=== PATIENT | male | born 1985 | race Caucasian/White ===

== ENCOUNTER 2018-04-05 09:00 | Outpatient (RCR) | payer BC, SELFPAY ==
--- NOTE | 2018-04-05 10:10 | BH.SGPN.GN ---
Behaviors/Verbalizations/Mental Status: [Client maintained good eye contact, casually dressed, motor activity appropriate, speech normal rate and tone, mood anxious, affect congruent, thoughts linear and logical, no evidence of delusions or hallucinations reported or observed.] Client Response/Progress/Benefit: [Client receptive of attending, actively provided input to discussion. Client did well to contribute to group discussion on what causes stress and the impacts of stress on mental health. Shared that stress can lead to increased anxiety and potential crisis if not managed. Provided personal example regarding his own experiences in struggling to manage stressors in his own life. Client appeared to connect with information provided regarding differences between eustress vs. distress. Expressed that stress can motivate us to take action or lead to becoming overwhelmed depending on how we respond to it. Client was able to reflect upon current personal stressors through completion of identification worksheet. Current stressors include: difficulties managing his mental health and loneliness, maintaining his physical health, finances, personal relationships, and work-related stressors. Benefitted from increasing awareness of his current stressors and the impact they may be having on ability to manage mental health symptoms. Client recommended continued IOP tx to improve stress management, increase healthy means for coping, as well as prevent decompensation.] ] Narrative Note: []
--- NOTE | 2018-04-05 10:15 | BH.SGPN.GN ---
Behaviors/Verbalizations/Mental Status: []Pt eye contact good, casually dressed, motor activity appropriate, speech normal rate and tone, mood euthymic, congruent affect, thoughts linear and intact, no evidence of delusions or hallucinations. Client Response/Progress/Benefit: []Pt engaged and active throughout session as evidenced by pt contributing thoughts and ideas to discussion and attentive to peers. Pt connected with peers? comments about flexible thinking being better than rigid thinking because with flexibility can adapt to challenges. Pt agreed with peers it's important to be resilient so can bounce back from hardships and crises. Pt engaged in small group discussion about the various strategies that can help strengthen one's resilience. Pt identified accepting change as a part of living can strengthen resilience because will reduce stress and prepare you to manage stress and change better. Pt stated if only focus on what can?t change then you won?t move forward. Pt seemed to benefit from increased awareness of what strategies can help strengthen resilience. Narrative Note: []
--- NOTE | 2018-04-05 11:15 | BH.SGPN.GN ---
Behaviors/Verbalizations/Mental Status: []Client alert and oriented, neatly dressed and groomed. Eye contact good. Motor activity appropriate. Speech within normal limits. Affect congruent to topic being discussed, mood anxious, euthymic. Thoughts linear, logical, no signs of hallucinations or delusions Client Response/Progress/Benefit: []Client responded well to session, active participant and providing positive insight. Client participated in the group activity and was positive throughout. Client helped the group review the strategies to increase personal resilience and shared trying to be positive is important. Client received a stress ball to help client remember the resilience factors. Client reported he would like to increase his resilience by increasing his hope and optimism. Client shared he has been through numerous hardships this year, so it is not easy for him to think positive at times. Client?s small step towards this goal is to focus on different perspectives when he is being negative. Client appeared to benefit from setting a goal to increase his resilience. Client?s first day in IOP. Client to continue to reduce symptom intensity and increase mood stability.
--- NOTE | 2018-04-06 09:50 | BH.SGPN.GN ---
Behaviors/Verbalizations/Mental Status: [] Pt eye contact good, casually dressed, motor activity appropriate, speech normal rate and tone, mood euthymic, congruent affect, thoughts linear and intact, no evidence of delusions or hallucinations. Reviewed client?s symptom tracker, no signs of suicidal ideation, plan, or intent as of today. Client Response/Progress/Benefit: []Client listened to others, provided positive encouragement to peers and shared thoughts and feelings. Client reported a mental health win yesterday was being able to go to work after his first day in [facility] and wasn't too stressed out while at work. client shared another mental health win is showing up to [facility] for his second day. Client reported he is proud of himself for being able to go to work and to the gym yesterday after leaving [facility]. Client identified feeling excited for what today brings him. Client to continue IOP treatment to decrease depression, learn healthy coping and prevent decompensation. Narrative Note: []
--- NOTE | 2018-04-06 10:10 | BH.SGPN.GN ---
Behaviors/Verbalizations/Mental Status: [Client alert and oriented, casual appearance. Eye contact good. Motor activity appropriate. Speech within normal limits. Affect congruent, mood euthymic and anxious. Thoughts linear, logical, no signs of hallucinations or delusions. ] Client Response/Progress/Benefit: [Client receptive to session, provided input throughout and actively listening during discussion on stress. Able to brainstorm with the group positive and negative aspects of stress on physical and mental health. Client shared connecting with discussion that even positive things can create stress in one?s life, but reports connecting with fellow participant?s examples.? Client participated in identifying current stressors impacting mental health. Client?s current stressors included; mental health, work, finances, communicating with supports, social skills and loneliness. Client reports his stress jar is currently not full but is getting close. Noted trying to use skills of reaching out to supports, exercising, and focusing on the positives to prevent from it overflowing. Appeared to benefit from gaining awareness of own current stressors and learning about the impact stress has on overall wellbeing. Progress noted in improved engagement in group and report of increased use of positive affirmations. Recommend continued IOP tx to improve consistent use of healthy coping skills and to further decrease intensity of symptoms.] Narrative Note: []
--- NOTE | 2018-04-06 11:20 | BH.SGPN.GN ---
Behaviors/Verbalizations/Mental Status: []Client alert and oriented, neatly dressed and groomed. Eye contact intense at times. Motor activity appropriate. Speech within normal limits-positive encouragement. Affect constricted, mood anxious. Thoughts linear, logical, no signs of hallucinations or delusions. Client Response/Progress/Benefit: []Client responded well to session, positive and providing ideas to peers. Client participated in the activity aimed to induce stress where client was both receptive to ideas and providing insight. Client stated, ?I didn?t think we could use that? and that group connected that sometimes ?we put restrictions on ourselves.? The group did not accomplish the goal completely, but client did not perceive it as a failure. Instead client stated, ?I think we did pretty well considering the time.? Client shared being a good listener and communicator was helpful in the activity. The group was able to make several connects to their personal lives from the activity to better deal with stress such as: using supports, adjusting expectations, and using positive self-talk. Client appeared to benefit from practicing in the moment emotional regulation skills and from gaining insight to strategies to manage stress. Client?s second day of IOP, so progress is somewhat limited. However, client appears motivated to improve his mental health. Client to continue IOP to prevent decompensation, reduce depressive symptoms, and increase mood stability.
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
--- NOTE | 2018-04-06 15:30 | BH.MDN_ITS ---
Multi-Disciplinary Note - Note 60-min Individual Time Started:: 12:20 Date: 04/06/18 Purpose of session/treatment goals addressed:: The purpose of this session was to gather information on client's current stressors, symptoms, and treatment goals. Another goal was to build rapport and set a small daily goal. Eye Contact:: Good Motor Activity:: Restless Appearance:: Neat Speech:: Tangential, Rapid Mood:: Anxious, Dysthymic Affect:: Congruent - tearful at times Thoughts:: Racing, Circular, No evidence of hallucinations/delusions noted Staff Interventions:: Therapist used active listening and open-ended questions to explore client's current stressors, symptoms, and supports. Therapist used strengths perspective to build rapport and help client identify positives and personal resilience factors. Therapist provided a nonjudgmental environment and emotional validation. Therapist provided psychoeducation on depressive maintenance cycles and grief. Therapist assisted client in identifying overall treatment goals and gave client homework to research a book he wants to read for pleasure and to fill out a thought log. Client Response:: Client responded well to session, open to meeting with therapist. Client shared the numerous stressors he has been through over the past year and stated, it just keeps getting worse. Over the past year client has experienced numerous loses, medication changes, work stress, unexpected hardships, and family issues. Client shared he continues to grieve the loss of his dog, cat, and relationship. Client reported he is tired of being so sad all the time and that he hopes [facility] will help him learn how to better manage his depression. Client shared he has tried self-help books, pushing through, and medication, but he continues to feel stuck. Client stated he feels like he is wearing a mask all the time. Client able to see how sometimes wearing the mask can be a strength as it helps client engage in opposite action or thought challenging. Client connected with the cycle of depression and shared his negative, depressive thinking keeps him stuck in the cycle of depression. Client shared he has struggled with anxiety for most of his life and that his depression and anxiety impact one another. Client shared after everything he has been through this year I'm afraid to get better as client fears that getting better means the next shoe will drop. Client reported he has anxiety about being away from his job to come to [facility] because he is afraid the building will catch on fire without client there to manage things. Client able to challenge this perspective with assistance from therapist. Client receptive to homework provided by therapist. Risks/Concerns:: Client reports having passive thoughts of but I would never act on them. Client denies active suicidal ideation, plan, and intent as of 04/06/18. Progress Toward Goals/Plan:: No progress noted yet as client just started IOP. However, client appears motivated to engage in treatment and reports his current medication has been somewhat helpful. Client receptive to homework and stated doing workbooks has been helpful in the past. Client?s identified his treatment goals to be managing depression, finding better strategies for accepting what has happened to him, and increasing trust. Client to continue IOP to prevent decompensation and promote mood stability. Time Stopped:: 13:40
--- NOTE | 2018-04-08 10:10 | BH.SGPN.GN ---
Behaviors/Verbalizations/Mental Status: []Pt eye contact good, casually dressed, motor activity appropriate, speech normal rate and tone, mood euthymic, full affect, thoughts linear and intact, no evidence of delusions or hallucinations. Client Response/Progress/Benefit: []Client listened attentively to peers and contributed thoughts and ideas to discussion. Client reported he connects with the quote because he is feeling stuck at his current job due to feeling anxious about making a potential career change. Client stated change is difficult because fear that you fail or things don't get better. Client connected with the various emotions discussed that can impact change process. Client seemed to benefit from learning about the stages of change and increased awareness of how fear of unknown has been a barrier for him to make a change. Narrative Note: []
--- NOTE | 2018-04-08 11:16 | BH.SGPN.GN ---
Behaviors/Verbalizations/Mental Status: [Client alert and oriented, casually dressed, appropriately groomed. Eye contact good. Motor activity WNL. Speech appropriate rate and tone ? at times rambling. Affect full, mood euthymic and anxious. Thoughts linear, logical, no signs of hallucinations or delusions. ] Client Response/Progress/Benefit: [Client receptive of session, active participant in both activity and discussion. Client provided input and insight throughout, at times struggling to provide other participants with the opportunity to contribute to discussion. Client worked with the group as they discussed the barriers faced in activity and identify connections with barriers to change. Provided specific connection that ?change can be unpredictable and sometimes you have to do something different and adjust the plan?. Benefited from gaining information on Decisional Balance technique in overcoming ambivalence to change. Client able to apply this strategy to identify the pros and cons regarding a mental health change he is currently considering. 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 Reflected that this change will decrease anxiety and ideally reduce frustrations with his supports since he will be able to have better boundaries as a result. Progress made in client ability to identify potential consequences of not making a healthy change on his mental health. Client to continue IOP to reduce depression, prevent decompensation, and increase positive self-talk. ] Narrative Note: []
--- NOTE | 2018-04-08 13:24 | PCM.HP.BLA ---
History and Physical Date of Admission: 04/05/18 Chief Complaint: The patient is a 32-year old male who was referred to the intensive outpatient mental health treatment program at [facility] by his PCP. He has a history of worsening depression, chronic anxiety, and personality vulnerabilities. History of Present Illness: The patient says that depression has been a problem for most of his life. His depression used to be present intermittently. It has been steady and worsening over the past year. Precipitating events have included the breakup of a relationship with his girlfriend 1 year ago. Also, his beloved cat and dog . Also, he has been stressed out by work and family problems. On his current combination of medicines, he rates his depression as a 3 out of 10. His sleep varies. Appetite is normal. His energy level is good, but his motivation level is low. He denies crying spells. Not able to enjoy much in life. He has been more irritable. Concentration varies. Does have hope for the future. Suicidal thoughts but often wishes that he would just be or not exist. The patient further says that anxiety has been a problem for most of his life. Always been a big worrier and tends to worry about many different things. He said that he had severe social anxiety before the age of 24, and then suddenly I woke up. He has had fewer social anxiety symptoms in recent years. The patient has some personality vulnerabilities. Relationships have always been difficult for him. He has abandonment fears and emotional deprivation concerns. He also feels socially inadequate. His personality vulnerabilities have contributed significantly to his symptoms of depression and anxiety. Past Psychiatric History: The patient has never been admitted to a psychiatric hospital and he denies any history of suicide attempts. He has been in counseling for the past 10 years. He was seeing a therapist 2 times a week, but is taking a break from therapy in order to work this program. He has been prescribed several medications in the past including Prozac, Zoloft and Lexapro. He believes that he is making progress on his Cymbalta combined with recently added Abilify. He denies any history of cutting behavior. Current Psychiatric Medications: Cymbalta 40 mg twice daily, Abilify 2 mg daily Medical History: Healthy allergies: No known drug allergies. Family Psychiatric History: Both parents have had depression and a brother has depression. Personal/Social History: His parents remain but are not close and are always fighting. He has never had a good relationship with his father. 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 He has 2 brothers. He has a BA degree in psychology. 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 He has never . He broke up with his girlfriend about a year ago. This devastated him. He has a difficult time when relationships fail, and he has been in many failed relationships. He has no children. There is no history of drug or alcohol problems. Review of Systems: Psychiatry: Depression and anxiety as per HPI. Not suicidal. There is no psychosis. He is cognitively intact. Constitutional: He is of average build and his weight has been steady. His energy level varies. He is eating well. Neurological: no headaches, no focal weakness. All other systems reviewed and are negative. Examination: The patient presents as a pleasant, personable male of average build who wears his hair very short. He demonstrates good social skills. Vital signs height 5 foot 10 inches, weight 178 pounds, respirations 15. Musculoskeletal: No muscle weakness or joint pain. His speech is fluent and spontaneous. His language is intact. His judgment and insight are fair. He is alert and oriented x3. His affect is cordial and appropriate. His recent and remote memory are intact. He demonstrates normal attention span and concentration. He has normal thought processes and abstract reasoning. His associations are intact. There are no hallucinations or delusions and he is not suicidal. He demonstrates normal age-appropriate fund of knowledge. Mental Status Examination: The patient is a pleasant, personable male of average build who demonstrates good social skills. Thoughts are logical and coherent. Chronic depression which is improving. He has chronic anxiety. He is not suicidal. There is no psychosis. He is cognitively intact. Summary: Patient is a 32-year old male with worsening depression over the past year, currently improving on medication. He has chronic anxiety and worry consistent with PADMINI. He has a history of social anxiety, improved. He has suffered recent stressors and losses. Has a history of personality vulnerabilities, contributing to his symptoms. Diagnoses: Arcadia I: Major depression, recurrent, in partial remission; generalized anxiety disorder; adjustment disorder with depression and anxiety; history of social anxiety, improved Arcadia II: Personality disorder unspecified Arcadia III: None Plan: I am continuing treatment with Cymbalta 40 mg twice daily. Also continuing with Abilify 2 mg daily. He will participate in the intensive outpatient groups. I will see him again as needed.
--- NOTE | 2018-04-08 13:47 | BH.DR.ITP ---
Initial Treatment Plan - Patient Information Visit Information: ADMISSION DATE: 04/05/18 EXPECTED LOS: 4-6 weeks Diagnoses:: Major depression; PADMINI; personality disorder unspecified - Problems/Symptoms Problem #1:: depression Symptom:: sadness, anhedonia, passive wishes Problem #2:: anxiety Symptom:: chronic worry, overthinking; stressed out Problem #3:: personality disorder unspecified Symptom:: chronic problems in romantic and family relationships
--- NOTE | 2018-04-11 08:17 | BH.MTP_ITS ---
[facility] - Patient Information Program Physician:: Raymon Travis Primary Therapist:: Abeba Escobar - Psychiatric Diagnoses Psychiatric Diagnoses:: Major depression, recurrent, in partial remission; PADMINI; personality disorder unspecified Diagnosis Code(s):: F33.41, F41.1 - Estimated LOS Estimated LOS (in weeks):: 6 Problem/Goal #1 - Problem/Goal #1 Stated Goal:: Client will reduce depressive symptoms, suicidal thoughts, and negative core beliefs associated with major depressive disorder. Description of Barriers: Client acknowledges that he has numerous negative core beliefs or schemas about himself that are reinforced by cognitive distortions and relationships. Client reports belief that he has stayed miserable in the past due to fear of getting better. Client is kind and willing to help people in his life, but at times takes on too many things at once and feels overwhelmed. 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 Client reported his family does not support his mental health and has poor communication. Client could benefit from increasing positive supports. Client recognizes that he has had a hard time moving past all the adverse experiences he has been through in the last year and acknowledges that he may self-sabotage at times. Functional Impact: Client is a 32-year-old male with a history of depression and anxiety who was referred to IOP by his PCP due to worsening depression for the past several months. Client described his depression at intake as really bad and having nonstop symptoms. Client's symptoms have been worsening over the past year due to numerous stressors including loss of his grandma, 2 pets, break up with girlfriend, and family issues. Client endorses depressed mood, decreased motivation, lack of renita in life, passive thoughts of , and negative core beliefs. Client also endorses ruminative anxiety and history of panic attacks. Client reports his family dynamic and work significantly impact client's mental health and mood. Client shared he has had a hard time moving on and has not felt happy in a long time. Client's symptoms impact his social, familial, and occupational functioning as well as his quality of life. Goal Relevant Strengths/Supports: Client is a kind, intelligent, and receptive individual who presents with high motivation to change his negative thinking, improve his mental health, and increase emotional healing. Client has a good base of knowledge of healthy coping skills, personal warning signs and triggers, and how he relates to others. Client can recognize patterns of behavior and thinking that have kept him stuck in the past and he is willing to change them. Client is active, resilient, and engaged in his treatment. Client has some supports and is active in volunteering and counseling. - Objectives Objective #1 Stated Objective: Client will identify and replace 2-3 negative thinking patterns that reinforce depressive symptoms, suicidal ideation, and negative self-talk. Interventions: Through groups and individual therapy, client will be provided with education on cognitive distortions, mistaken beliefs, and identifying and combating negative self-talk. Therapist will assist client in recognizing triggers for increased suicidal and depressive thought patterns. Therapist will help client explore connection between thoughts, feelings, and actions and help client reframe depressive thought patterns. Therapist will help client gain awareness of why client has developed negative thoughts and core beliefs of self and teach client how to reframe these thoughts. Discharge Criteria: Client will have accomplished this goal when client can identify and replace at least 2 negative thinking patterns with more realistic, positive statements. Target Date: 05/17/18 Review Date: 05/03/18 Status: open Objective #2 Stated Objective: Client will learn and utilize 2-3 healthy coping strategies to manage depressive symptoms as shown by reduced DSM-5 cross-cutting symptom measure score. Interventions: Through group and individual sessions, therapist will assist client in learning internal coping strategies to manage depressive symptoms, along with helping client identify triggers. Therapist will teach client about self-compassion, self-care, and personal resilience factors and how they can benefit the healing process. Discharge Criteria: Client will have achieved this goal when his DSM-5 symptoms for depression have decreased and he can verbalize and has practiced at least 2 healthy coping strategies. Target Date: 05/17/18 Review Date: 05/03/18 Status: open Problem/Goal #2 - Problem/Goal #2 Stated Goal:: Client will reduce overall frequency, intensity, and duration of anxiety to improve functioning. Description of Barriers: Client acknowledges that he has numerous negative core beliefs or schemas about himself that are reinforced by cognitive distortions and relationships. Client reports belief that he has stayed miserable in the past due to fear of getting better. Client is kind and willing to help people in his life, but at times takes on too many things at once and feels overwhelmed. 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 Client reported his family does not support his mental health and has poor communication. Client could benefit from increasing positive supports. Client recognizes that he has had a hard time moving past all the adverse experiences he has been through in the last year and acknowledges that he may self-sabotage at times. Functional Impact: Client is a 32-year-old male with a history of depression and anxiety who was referred to [facility] by his PCP due to worsening depression for the past several months. Client described his depression at intake as really bad and having nonstop symptoms. Client's symptoms have been worsening over the past year due to numerous stressors including loss of his grandma, 2 pets, break up with girlfriend, and family issues. Client endorses depressed mood, decreased motivation, lack of renita in life, passive thoughts of , and negative core beliefs. Client also endorses ruminative anxiety and history of panic attacks. Client reports his family dynamic and work significantly impact client's mental health and mood. Client shared he has had a hard time moving on and has not felt happy in a long time. Client's symptoms impact his social, familial, and occupational functioning as well as his quality of life. Goal Relevant Strengths/Supports: Client is a kind, intelligent, and receptive individual who presents with high motivation to change his negative thinking, improve his mental health, and increase emotional healing. Client has a good base of knowledge of healthy coping skills, personal warning signs and triggers, and how he relates to others. Client can recognize patterns of behavior and thinking that have kept him stuck in the past and he is willing to change them. Client is active, resilient, and engaged in his treatment. Client has some [employer] pports and is active in volunteering and counseling. - Objectives Objective #1 Stated Objective: Client will identify 2-3 anxiety triggers and 2 calming coping skills to reduce anxiety as shown by decreased DSM-5 cross cutting symptom measure scores. Interventions: Therapist will help client increase awareness of anxiety triggers and educate client on the ways anxiety impacts overall health. Therapist will teach client various calming and mindfulness strategies to promote emotional regulation and reduction of anxiety. Therapist will encourage client to implement healthy coping skills on a regular basis. Discharge Criteria: Client will have accomplished this goal when can report at least 2 triggers for anxiety and 2 calming strategies to manage symptoms. Additionally, client will have accomplished this goal when she can report reduced DSM-5 cross cutting symptoms for anxiety. Target Date: 05/17/18 Review Date: 05/03/18 Status: open Objective #2 Stated Objective: Client will identify 2-3 cognitive distortions or mistaken beliefs that lead to rumination and learn 2-3 ways to manage these thoughts to reduce anxiety. Interventions: Therapist will provide education on the most common cognitive distortions and teach client the connection between thoughts, emotions, and feelings. Therapist will assist client in identifying, challenging, and replacin g dysfunctional thoughts with positive, more realistic thoughts. Therapist will use CBT and DBT techniques to help client gain awareness of thinking errors and learn how to more effectively handle negative thoughts. Therapist will also help client increase his distress tolerance skills. Discharge Criteria: client will have accomplished this goal when can identify at least 2 cognitive distortions and at least 2 coping skills to manage negative thoughts. Target Date: 05/17/18 Review Date: 05/03/18 Status: open Problem/Goal #3 - Problem/Goal #3 Stated Goal:: Client will increase self-awareness and interpersonal effectiveness skills to improve relationships. Description of Barriers: Client acknowledges that he has numerous negative core beliefs or schemas about himself that are reinforced by cognitive distortions and relationships. Client reports belief that he has stayed miserable in the past due to fear of getting better. Client is kind and willing to help people in his life, but at times takes on too many things at once and feels overwhelmed. 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 Client reported his family does not support his mental health and has poor communication. Client could benefit from increasing positive supports. Client recognizes that he has had a hard time moving past all the adverse experiences he has been through in the last year and acknowledges that he may self-sabotage at times. Functional Impact: Client is a 32-year-old male with a history of depression and anxiety who was referred to [facility] by his PCP due to worsening depression for the past several months. Client described his depression at intake as really bad and having nonstop symptoms. Client's symptoms have been worsening over the past year due to numerous stressors including loss of his grandma, 2 pets, break up with girlfriend, and family issues. Client endorses depressed mood, decreased motivation, lack of renita in life, passive thoughts of , and negative core beliefs. Client also endorses ruminative anxiety and history of panic attacks. Client reports his family dynamic and work significantly impact client's mental health and mood. Client shared he has had a hard time moving on and has not felt happy in a long time. Client's symptoms impact his social, familial, and occupational functioning as well as his quality of life. Goal Relevant Strengths/Supports: Client is a kind, intelligent, and receptive individual who presents with high motivation to change his negative thinking, improve his mental health, and increase emotional healing. Client has a good base of knowledge of healthy coping skills, personal warning signs and triggers, and how he relates to others. Client can recognize patterns of behavior and thinking that have kept him stuck in the past and he is willing to change them. Client is active, resilient, and engaged in his treatment. Client has some supports and is active in volunteering and counseling. - Objectives Objective #1 Stated Objective: Client will learn 2-3 techniques to better manage his interpersonal relationships. Interventions: Through group and individual sessions, client will learn strategies to improve communication, resolve conflict, and increase emotional regulation to better manage interpersonal relationships. Therapist will also teach client about self-forgiveness, boundaries, and radical acceptance to help client heal from previous relationships. Discharge Criteria: Client will have accomplished this goal when he can identify and report using at least 2 techniques to better manage interpersonal relationships. Target Date: 05/17/18 Review Date: 05/03/18 Status: open
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
--- NOTE | 2018-04-11 09:12 | BH.SGPN.GN ---
Behaviors/Verbalizations/Mental Status: []Pt eye contact good, casually dressed, motor activity appropriate, speech normal rate and tone, mood euthymic, congruent affect, thoughts linear and intact, no evidence of delusions or hallucinations. Client Response/Progress/Benefit: []Pt listened attentively to others, shared thoughts and feelings and made supportive comments to peers. Pt reported one mental health positive was being social everyday the past weekend, which pt stated is something he hasn't done for months. Pt shared another mental health positive was working on a work project over the weekend and actually enjoying himself. 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 Pt shared initially he was going to avoid the discussion with his father, but chose to be honest and pt stated surprisingly his father was supportive of his decisions. Pt recognized it helped reduce his anxiety and rumination by openly communicating. Pt seemed to benefit from expressing thoughts and feelings. Pt to continue IOP level of care to maintain gains, increase healthy coping, and prevent decompensation. Narrative Note: []
--- NOTE | 2018-04-11 10:20 | BH.SGPN.GN ---
Behaviors/Verbalizations/Mental Status: []Client alert and oriented, neatly dressed and groomed. Eye contact good. Motor activity appropriate. Speech within normal limits. Affect constricted, mood euthymic. Thoughts linear, logical, no signs of hallucinations or delusions. Client Response/Progress/Benefit: []Client responded well to session, active participant. Client connected with the quote and shared a personal example of poor communication. Client shared that ineffective communication includes mind-reading, not listening, and poor body language and it can negatively impact mental health and relationships. Client shared effective communication is important because it can increase self-esteem. Client helped the group discuss the different communication styles including the payoffs and costs of each. Client shared his father is mostly aggressive and it is hard for client to work together with his father because of this. Client reported belief he uses aggressive communication and sometimes he has to at work. Client able to acknowledge the potential consequences of only using aggressive communication such as poor interpersonal relationships. Client appeared to benefit from increasing awareness of how communication impacts mental health. Progress noted as client reports application of healthy coping skills learned in individual and group sessions. Client to continue IOP to increase mood stability, improve interpersonal relationship skills, and reduce negative thinking.
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
--- NOTE | 2018-04-13 09:15 | BH.SGPN.GN ---
Behaviors/Verbalizations/Mental Status: [Eye contact is good. Motor activity is appropriate. Appearance is casual, grooming appropriate. Speech is Appropriate rate and tone. Mood is euthymic. Affect is congruent. Thoughts are linear and logical. No evidence of psychosis. Reviewed daily check in sheet and pt denies any active SI, plan, or intent as of this date.]] Client Response/Progress/Benefit: [Pt responded well to session, engaged throughout and open to processing with the group. Pt indicated current emotion as ?fairly calm? and discussed that this has been due to spending more time with supports. Identified this as a mental health win, indicating that he has been able to be a support without overstepping boundaries. Discussed that in the past, pt would have struggled with wanting the friendship to become something more, but he is now more capable of weighing the pros and cons related to crossing that boundary and decided not to pursue such. Additional win identified as consistently going to the gym, which he reports has been beneficial in improving self-confidence levels. Stressor identified as occupational stressors, but provided insight regarding the importance of ?leaving work at work? and maintaining balance. Appeared to benefit from the support and structure of group environment. Pt recommended continued IOP tx to prevent decompensation, promote ongoing application of healthy coping skills, and further reduce mental health sx.] Narrative Note: []
--- NOTE | 2018-04-13 10:20 | BH.SGPN.GN ---
Behaviors/Verbalizations/Mental Status: []Client alert and oriented, casually dressed, hygiene good. Eye contact good. Motor activity appropriate. Speech within normal limits. Affect full, mood euthymic. Thoughts linear, logical, no signs of hallucinations or delusions. Client Response/Progress/Benefit: []Client responded well to session, active participant and providing good insight to discussion. Client connected with the quote and shared ?it?s easier to hard on ourselves? rather than acknowledge progress towards goals. Client reported setting goals can benefit mental health because it can increase self-esteem, motivation, and mood. Client shared barriers such as external events, negative thinking, and self-doubt impact one?s ability to accomplish goals. Client helped the group define SMART goals and shared it is important for goals to be relevant and realistic. Client participated in the group activity and stated the group struggled at first with self-doubt, but then succeeded when everyone worked together and set realistic goals. Client appeared to benefit from learning about SMART goals and practicing setting smart goals. Progress noted in client?s report of improved mood and use of coping skills, but he can continue to reduce negative thinking and increase interpersonal effectiveness skills.
--- NOTE | 2018-04-13 11:20 | BH.SGPN.GN ---
Behaviors/Verbalizations/Mental Status: []Client alert and oriented, casually dressed, hygiene good. Eye contact good. Motor activity appropriate. Speech within normal limits. Affect full, mood euthymic. Thoughts linear, logical, no signs of hallucinations or delusions. Client Response/Progress/Benefit: []Client responded well to session, active participant. Client shared his goal is to not be verbally aggressive to his dad at work, but client had a hard time coming up with a SMART goal. After receiving help from therapist, client identified his SMART goal as taking the first 10 minutes of work to ?check in? with himself by writing his thoughts and emotions. Client shared accomplishing this goal would help client recognize the type of support or coping skill he needs before talking with his father in order to better manage his emotions. Client stated this would also reduce conflict and improve his mood. Client?s barriers included: old habits, emotions, workload, and his father. Client able to identify solutions to barriers such as: being mindful of his reactions, pause before reacting, and speaking assertively. Client appeared to benefit from identifying a SMART goal as well as identifying solutions to barriers. Progress noted as client reports slightly improved mood. However, client continues to struggle with mood instability, negative thinking, and interpersonal relationship challenges.
--- NOTE | 2018-04-13 14:24 | BH.MDN_ITS ---
Multi-Disciplinary Note - Note 30-min Individual Time Started:: 12:30 Date: 04/13/18 Purpose of session/treatment goals addressed:: The purpose of this session was address current stressors, symptoms, and boundaries. Another goal was to review different mindfulness and emotional regulation skills. Other topics included: homework and self-compassion. Eye Contact:: Good Motor Activity:: Appropriate Appearance:: Casual Speech:: Appropriate Mood:: Euthymic, Anxious Affect:: Congruent Thoughts:: Linear, Logical, No evidence of hallucinations/delusions noted Staff Interventions:: Therapist used active listening and open-ended questions to explore client's current symptoms, stressors, and barriers. Therapist used gentle challenging to help client gain awareness of his self-care balance. Therapist helped client process his cognitive dissonance using motivational interviewing strategies. Therapist used scaling questions to have client rate his mood. Therapist used strengths perspective and gave client a reading on self-compassion as a form of emotional mindfulness. Therapist encouraged client to continue homework from Wednesday?s session and gave client a worksheet to help him accomplish the goal he set in group. Client Response:: Client responded well to session, open to meeting with therapist. Client shared he has not yet completed his homework from Wednesday's session as client spend the last two evenings helping a friend. Client assured therapist that the relationship is platonic and that he felt happy helping her. Client responded well to gentle challenging about overloading himself, sharing I didn't feel like I was taking on too much. Client and therapist discussed self-care and boundaries. Client stated he benefits from homework and worksheets, especially about his schemas and patterns of behavior. Client receptive to using mindfulness strategies to help client gain insight to when his emotions and thoughts become intense and need coping intervention. Client agreed to use the worksheet provided by therapist to practice this strategy. Client stated he continues to struggle with his family and holding onto emotions from the past. Client and therapist discussed client's options moving forward and discussed the concept of self-compassion. Client was open the idea of self- compassion as emotional healing. Client stated he has seen some progress with his mental health. Client shared his depression has decreased and he rated his mood a 6 out 10 with 10 being very happy. Client shared it has been a long time since he genuinely felt happy and he wants to get back to that point. Risks/Concerns:: Client denies any suicidal ideation, plan, or intent as of 04/13/18. Progress Toward Goals/Plan:: Client is demonstrating progress towards treatment goals as shown by his report of improved mood and use of mindfulness strategies to manage his emotions. Client shared he continues to feel depressive symptoms and anxiety, mostly related to family tension and deciding what he wants to do in the future. Client to continue IOP to increase mood stability, interpersonal effectiveness skills, and emotional regulation. Client to complete homework for next session. Time Stopped:: 13:00
--- NOTE | 2018-04-15 09:10 | BH.SGPN.GN ---
Behaviors/Verbalizations/Mental Status: []Client alert and oriented, neatly dressed and groomed. Eye contact good. Motor activity appropriate. Speech tangential and off topic at times. Affect congruent, mood euthymic. Thoughts linear, logical, no signs of hallucinations or delusions. Reviewed client?s symptom tracker, no risk for suicidal ideation, plan, or intent as of 04/15/18. Client Response/Progress/Benefit: []Client responded well to session, off topic at times, but overall positive and supportive to peers. Client reports feeling ?excited? due to his mood improving and plans to have an old friend over this weekend. Client shared he and his friend had ?a little bit of a falling out,? but client reached out and is looking forward to seeing him. Client reported another mental health positive was that he got done with all of his work yesterday ?and now I?m not thinking about work at all.? Client stated he has been working on his goal of practicing mindfulness at work and it has helped client ?not butt heads? with his father. Client?s current stressor is trying to make the weekend go well for his friend. Client appeared to benefit from reflecting on his positives and connecting with peers. Progress noted as shown by client?s improved mood, but he continues to struggle with negative thinking and mood instability.
--- NOTE | 2018-04-15 10:12 | BH.SGPN.GN ---
Behaviors/Verbalizations/Mental Status: [Client alert and oriented, casually dressed and groomed. Eye contact good. Motor activity appropriate. Speech within normal limits. Affect congruent, mood anxious, euthymic. Thoughts linear, logical, no signs of hallucinations or delusions. ] Client Response/Progress/Benefit: [Client responded well to session, attentive during discussion and providing input throughout. Client connected with the group topic of crisis and did well to work with group to define crisis. Group identified examples of potential crisis to include unexpected loss, overwhelming stress, and hardships out of one?s control. Connected with examples from group on personal crisis. Attentive during discussion on how coping with crisis by using unhealthy coping skills could lead to additional personal crisis. Client shared personal crisis occurs when we don?t know how to handle our stressors. Group identified unhealthy coping skills to include; substance use, toxic relationships, overeating, avoidance, anger, and giving up. Group identified warning signs for crisis which included; isolating, increased anxiety, avoidance, agitation, minimizing, and impatience. Client completed the personal warning signs worksheet and identified crisis warning signs to include; negative thinking, feeling out of control, and increased anxiety. Benefited from group by increasing awareness of crisis and personal warning signs. Progress noted as client displaying increased levels of engagement and report of more consistent application of skills learned, report of decreased depression. Recommended continued tx to improve skill application and reduce sx severity.] Narrative Note: []
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
--- NOTE | 2018-04-18 09:08 | BH.SGPN.GN ---
Behaviors/Verbalizations/Mental Status: [Eye contact good. Motor activity WNL. Appearance casual and neat. Speech Appropriate tone, appearing to be rambling at times. Mood anxious, dysthymic. Affect is congruent. Thoughts linear and logical. No evidence of delusions or hallucinations. Reviewed daily check in sheet and no reports of suicidal ideations or intent] Client Response/Progress/Benefit: [Client receptive of session, attentive as others discussed and providing input throughout. Client indicated current mood as ?exhausted, but happy to be here? and shared not feeling physically well today. Client identified current mental health wins as setting a boundary with a friend, despite it being difficult and the friend not initially responding well to the boundary. He went on to share that this was a new experience as he would not normally ?stand my ground?. Client went on to indicate another win as ?being here? despite not feeling well. Client receptive of discussion regarding impact of physical health on emotional health and did well to be challenged regarding whether he was pushing himself and risking further impacting his physical health by not taking time to rest today. Client noted plans to ?take it slow? and expressed that he would go home and rest if needed but felt like he needed to be at group today. Client benefitted from support of the group and reflecting upon internal boundaries as well as setting boundaries with others. Progress noted in Client ability to be challenged in this area. Client recommended continued IOP tx to improve self-awareness and anxiety management, prevent decompensation, and continue to promote change behaviors. ] Narrative Note: []
--- NOTE | 2018-04-18 10:15 | BH.SGPN.GN ---
Behaviors/Verbalizations/Mental Status: []Pt eye contact good, casually dressed, motor activity appropriate, speech normal rate and tone, mood euthymic, congruent affect, thoughts linear and intact, no evidence of delusions or hallucinations. Client Response/Progress/Benefit: []Pt listened attentively to peers and contributed thoughts and ideas throughout session. 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 Pt identified things he wants to take back control over to include: being sad/unhappy, lonely, negative thinking, poor communication, fear of getting better, not accepted by family, hopelessness, and pushing people away. Pt identified fear of getting better to be the biggest barrier that has the most control over his progress. Pt seemed to benefit from increased awareness of what he believes has too much power in his life. Narrative Note: []
--- NOTE | 2018-04-18 11:16 | BH.SGPN.GN ---
Behaviors/Verbalizations/Mental Status: []Client alert and oriented, casually dressed and groomed. Eye contact good. Motor activity appropriate. Speech within normal limits. Affect congruent, mood euthymic. Thoughts linear, logical, no signs of hallucinations or delusions. Client Response/Progress/Benefit: []Client responded well to session, active participant. Client connected with the zones of action and shared comfort zone ?is comfortable, but you don?t change there.? Client discussed the barriers that could prevent his from accomplishing him goal such as negative thinking and forgetting. Client began creating a 30-day action plan to reduce his fear of getting better. Client?s motivator for reducing this is increasing self-esteem and to feel confident about his mental health progress. Client?s goal for the first week is to say a compliment to himself in the mirror every morning. For the second week client is going to continue his first goal and practice smiling in the mirror as he says positive affirmations. Client shared he can practice this at home and at work. Client stated taking time to reflect and have a consistent routine will keep client motivated. Client appeared to benefit from creating small SMART goals to reduce fear of getting better. Progress noted as client reports improved mood, but he can continue to benefit from maintenance and challenging distortions.
--- NOTE | 2018-04-20 09:03 | BH.SGPN.GN ---
Behaviors/Verbalizations/Mental Status: []Client alert and oriented, neatly dressed and groomed. Eye contact good. Motor activity appropriate. Speech within normal limits. Affect constricted, mood euthymic. Thoughts linear, logical, no signs of hallucinations or delusions. Reviewed client?s symptom tracker, no risk for suicidal ideation, plan, or intent as of 04/20/18. Client Response/Progress/Benefit: []Client responded well to session, less vocal than normal due to sickness, but still encouraging peers. Client reports feeling ?happy to be here? today as he has been sick and almost cancelled this morning. Client receptive to gentle challenging about it being acceptable to take time off to take care of one?s health. Client shared he has been doing less physical labor at work to ?set boundaries with myself? and speed up his sickness recovery. Client?s current mental health positives include making it to group today and removing the stressor of getting his phone plan changed. Client shared right now he cannot identify many stressors other than the cold client is fighting. Client acknowledges that physical health impacts mental health and it could benefit client to continue having awareness of warning signs and triggers. Client appeared to benefit from connecting with others. Progress noted as client reports more consistent mood stability, but he has reported minimizing in the past. Client to continue IOP to prevent decompensation, increase emotional regulation, and promote maintenance.
--- NOTE | 2018-04-20 10:27 | BH.SGPN.GN ---
Behaviors/Verbalizations/Mental Status: [Client eye contact good, grooming and attire casual and well kempt, motor activity appropriate, speech normal rate and tone less input than usual baseline, mood dysthymic, congruent affect, thoughts linear and intact, no evidence of delusions or hallucinations] Client Response/Progress/Benefit: [Client receptive of session and did well to remain attentive to discussion and taking notes throughout. Client noted feeling ill and therefore provided limited verbal input but actively listening throughout. He reflected upon the quote and indicated that he agrees with the idea that we have the power to choose what direction we take next. Indicated that he connected with fellow participants who shared beliefs that although we may not choose what happens to us, we have the power to decide how we choose to react to the situation. Client appeared to benefit from group discussion regarding what barriers impact ability to ?choose a different path? and make healthier choices. Client reflected that fear can prevent making changes in our life. Connected with the ?Chapters of My Life? poem and worked with the group to analyze how various chapters described related to accepting personal role in making positive mental health changes. Recommended continued tx to promote change behaviors, reduce anxiety, and prevent decompensating.] Narrative Note: []
--- NOTE | 2018-04-20 11:25 | BH.SGPN.GN ---
Behaviors/Verbalizations/Mental Status: [] Eye contact is good. Motor activity is appropriate. Appearance is neat. Speech is Appropriate. Mood is anxious. Affect is congruent. Thoughts are linear and logical. No evidence of psychosis. Client Response/Progress/Benefit: [] Pt was an active participant in group discussion and activity. Worked within his small group to complete WDEP worksheet. Identified his want or goal as to stop feeling depressed and to feel happy and not expect bad things to happen Evaluated his progress towards want stating he is currently pushing people away, feeling hopeless, and being negative which is not moving him towards his want or goal. Developed plan which he believes will help move him towards his want or goals which includes increasing awareness though journaling. Benefited from group as he was able to identify behaviors which are keeping him stuck and plan to move forward. Will continue in IOP to prevent decompensation, decrease depressive symptoms, and increase functioning. Narrative Note: []
[2018-05-20 15:59] VITALS: BP 122/89; PULSE 76; RESP 14
== END 2018-04-21 23:59 | disposition home or self-care (01) ==
LOC: BHIOP 09:00
PROVIDERS: Family Provider Family Medicine; PCP Family Medicine; Referring Provider Psychiatry & Neurology Psychiatry; Visit Provider Psychiatry & Neurology Psychiatry
DX: F33.41 Major depressive disorder, recurrent, in partial remission (principal); F40.10 Social phobia, unspecified; F41.1 Generalized anxiety disorder; F43.23 Adjustment disorder with mixed anxiety and depressed mood; R45.851 Suicidal ideations; Z81.8 Family history of other mental and behavioral disorders; F60.9 Personality disorder, unspecified; Z79.899 Other long term (current) drug therapy
CPT/HCPCS: H0035; 90832; 90834; 90837; 90853

== ENCOUNTER 2018-04-25 09:00 | Outpatient (RCR) | payer BC, SELFPAY ==
--- NOTE | 2018-04-24 09:11 | BH.COMM ---
Communication Note - Communication with Client Communication Note: Client cancelled his scheduled individual and group IOP sessions today due to illness. Client reports plan to return on Wednesday04/25/18.
--- NOTE | 2018-04-25 09:03 | BH.SGPN.GN ---
Behaviors/Verbalizations/Mental Status: []Client alert and oriented, casually dressed. Eye contact good. Motor activity appropriate. Speech within normal limits. Affect full, mood euthymic. Thoughts linear, logical, no signs of hallucinations or delusions. Reviewed client?s symptom tracker, no risk for suicidal ideation, plan, or intent as of 04/25/18. Client Response/Progress/Benefit: []Client responded well to session, active participant. Client reports feeling tired but hopeful today. Client's current mental health wins include not being sick anymore I can speak again and meeting a new friend and client went out to lunch with them. Client also shared he has been practicing challenging his negative thinking also. Client shared I'm always thinking when's the next bad thing going to happen. However, now he catches himself and tries to challenge these thoughts. Client's current stressor is struggle with sleep. Client reported over the past couple of weeks he has been having a hard time staying asleep. Client appeared to benefit from reflecting on his progress in challenging cognitive distortions. Progress noted as client reports improved mood, but he can continue to benefit from IOP to increase self-awareness and emotional regulation.
--- NOTE | 2018-04-25 12:01 | BH.MDN_ITS ---
Multi-Disciplinary Note - Note 60-min Individual Time Started:: 10:30 Date: 04/25/18 Purpose of session/treatment goals addressed:: The purpose of this session was to identify strategies to improve boundaries and interpersonal effectiveness skills. Another goal was to review homework, challenge negative thinking, and increase emotional regulation. Eye Contact:: Good Motor Activity:: Appropriate Appearance:: Casual Speech:: Rambling Mood:: Euthymic Affect:: Congruent Thoughts:: Linear, Logical, No evidence of hallucinations/delusions noted Staff Interventions:: Therapist used active listening and open-ended questions to explore client's stressors, positives, and symptoms from the weekend. Therapist processed client's homework and gently challenged client on potential self-fulfilling prophecies. Therapist and client discussed the benefit of nilson listic expectations and healthy boundaries regarding relationships and supports. Therapist used strengths perspective to empower client on progress and use of mindfulness strategies. Therapist gave client homework on combating core beliefs. Client Response:: Client responded well to session, open to meeting with therapist and reviewing homework. Client stated he had a good experience with the homework from last week as client reported belief he was able to reduce his schema-driven urges and instead act in a more mindful way around his father. Client shared he had a positive weekend as client spent time with his friends and met someone new for lunch on Wednesday. Client stated he uses a website to meet people and he met up with a girl for lunch as friends. Client reported it was nice to spend time with someone and that this woman wants to meet again. Client acknowledges that he has struggled with relationships in the past but stated I felt like it was important for my healing to get myself back out there. Client challenged his negative thinking of when's the next bad thing going to happen by reminding himself that he is not a mind-reader and I shouldn't right her off. Client reported the woman he went to lunch with has a boyfriend and client shared I'm not going to enter homewrecker territory. Client receptive to gentle challenging from therapist on self-sabotage and boundary setting. Client acknowledges that he needs to continue to work on himself before entering any kind of new relationship. Client able to see the benefits of setting realistic expectations, communicating needs, and setting healthy boundaries. Client stated his mood has been more consistently positive and that it is real me not mask me. Client receptive to homework of beginning to recognize and challenge negative core beliefs. Risks/Concerns:: Client denies any suicidal ideation, plan, and intent as of 04/25/18. Progress Toward Goals/Plan:: Client is demonstrating progress towards treatment goals as shown by his report of improved mood, increased emotional regulation, and increased socialization. Client reported he has been using mindfulness and has been more focused on ?doing what?s best for me? when talking with supports. Client has ongoing depressive and anxious symptoms, but they are of reduced intensity. Client continues to struggle with boundaries and establishing expectations at times, especially when entering new relationships. Client to continue IOP to increase mood stability, interpersonal effectiveness skills, and emotional regulation. Client to complete homework for next session. Time Stopped:: 11:25
--- NOTE | 2018-04-27 10:22 | BH.SGPN.GN ---
Behaviors/Verbalizations/Mental Status: []Client alert and oriented, casually dressed, good hygiene. Eye contact good. Motor activity appropriate. Speech within normal limits-less vocal than normal. Affect congruent, mood euthymic, anxious. Thoughts linear, logical, no signs of hallucinations or delusions. Client Response/Progress/Benefit: []Client responded somewhat well to session, quiet and taking notes, but providing occasional input. Client connected with the concept of pitfalls and identified pitfalls as things that ?get us stuck.? Client agreed with peers that lack of awareness, comfort, and self-sabotage can increase the likelihood of someone falling into a pitfall. Client identified negative thinking and fear as examples of pitfalls. Client shared if a person has good self-awareness it is possible to avoid falling into pitfalls. Client participated in the group activity and provided verbal direction. Client stated it was hard to navigate past pitfalls when the group was unaware of the barriers in front of them and lacked direction. Client appeared to benefit from increasing awareness of how pitfalls impact mental health and how to manage pitfalls. Progress noted as client reports more consistent mood stability, but he continues to struggle with low self-esteem and self-care that reinforce depression and anxiety.
--- NOTE | 2018-04-27 11:20 | BH.SGPN.GN ---
Behaviors/Verbalizations/Mental Status: [] Eye contact is good. Motor activity is appropriate. Appearance is casual. Speech is Appropriate. Mood is anxious. Affect is congruent. Thoughts are linear and logical. No evidence of psychosis Client Response/Progress/Benefit: [] Pt was an active participant in group discussion and activity. Pt completed a worksheet where he identified his own personal pitfalls. Along with the group he also identified general pitfalls or obstacles that keep them stuck in Thier life. Obstacles included; being unorganized, lack of a plan, not communicating, fear of failure, not utilizing supports, and letting emotions get in the way of progress. Group worked together to identify strategies to overcome personal and general pitfalls which included; actively participating in mental health treatment, developing and committing to a plan, identifying decision-making and problem solving strategies, reflection on past experiences, identifying coping skills that are effective and not effective, reframing, and challenging negative thoughts. Benefited from identifying personal and general pitfalls and strategies to over these pitfalls. Will continue in IOP to increase coping skills, improve daily functioning, and prevent decompensation. Narrative Note: []
--- NOTE | 2018-04-28 09:05 | BH.SGPN.GN ---
Behaviors/Verbalizations/Mental Status: []Client alert and oriented, neatly dressed and groomed. Eye contact good. Motor activity appropriate. Speech within normal limits. Affect congruent, mood euthymic. Thoughts linear, logical, no signs of hallucinations or delusions. Reviewed client?s symptom tracker, no risk for suicidal ideation, plan, or intent as of 04/28/18. Client Response/Progress/Benefit: []Client responded well to session, active participant. Client reports feeling ?excited? today as his mood has been improving. Client reported his current mental health positives are that he is interested in listening to music to music again and he set a boundary with a friend. Client shared ?I?m all for helping people, but I felt like she was taking advantage of my generosity.? Client stated he felt anxious about setting the boundary because he did not want to hurt her feelings. However, client shared he decided to set the boundary because ?I don?t like mixing work with friends.? Client reports feeling proud about the boundary, but he shared he will have to continue to reinforce it. Client appeared to benefit from reflecting on progress with boundary setting, but he can continue to reinforce healthy coping skills to prevent setbacks.
--- NOTE | 2018-04-28 10:17 | BH.SGPN.GN ---
Behaviors/Verbalizations/Mental Status: [Client alert and oriented, casually dressed, hygiene appropriate. Eye contact good. Motor activity WNL. Speech appropriate rate/tone. Affect congruent, mood euthymic. Thoughts linear, logical, no signs of hallucinations or delusions. ] Client Response/Progress/Benefit: [Pt responded well to session, able to connect with group topic and provide ideas throughout. Pt appeared to connect with the quote, providing insight that ?it?s important to move on from anything? and went on to discuss negative impact of ruminating on the past. Pt participated in group discussion regarding mental health benefits of change. Pt identified three small personal changes to improve mental health as : fight less with his father at work, begin going to bed before 12am, and reach out to more healthy male supports. Identified current barriers keeping pt from making those changes to be: bad habits, distractions, lack of initiative, and personalizing the opinion of others. Pt appeared to benefit from gaining awareness of personal changes that would improve mental health and the barriers keeping client stuck. Progress noted in client level of insight regarding current barriers impacting mental health change and how these are keeping him stuck. Continue IOP to further increase healthy coping skills and promote healthy boundaries and change behaviors] Narrative Note: []
--- NOTE | 2018-05-03 09:02 | BH.SGPN.GN ---
Behaviors/Verbalizations/Mental Status: []Client alert and oriented, neatly dressed and groomed. Eye contact good. Motor activity appropriate. Speech within normal limits. Affect congruent, mood euthymic. Thoughts linear, logical, no signs of hallucinations or delusions. Reviewed client?s symptom tracker, no risk for suicidal ideation, plan, or intent as of 05/03/18. Client Response/Progress/Benefit: []Client responded well to session, providing supportive statements to peers. Client reports feeling ?tired but happy to be here? today. Client discussed and processed his current mental health wins and stressors. Client?s current stressor is difficulty sleeping. Client shared he has not been able to stay asleep throughout the night and he is worried he will ?dose off? behind the wheel when he is driving. Client spoke with his nurse practitioner about it and she suggested a sleep study. Client plans to follow up with scheduling. Client?s mental health wins include spending time being social this weekend and setting boundaries. Client reported ?I was social three days this weekend? and shared it felt good to be around friends that do not take advantage of client. Client set a boundary with a friend who has been asking client for a lot of favors recently. Client shared ?I felt like she was taking advantage of my generosity? and that although his friend did not like the boundary, client felt good about it for his mental health. Client appeared to benefit from reflecting on progress. Client continues to endorse more stable moods and is applying coping skills. Client to continue IOP to further promote gains and continue working on challenging cognitive distortions.
--- NOTE | 2018-05-03 11:16 | BH.SGPN.GN ---
Behaviors/Verbalizations/Mental Status: []Client alert and oriented, casual dress, hygiene tended to. Eye contact good. Motor activity appropriate. Speech within normal limits. Affect congruent, mood euthymic and positive. Thoughts linear, logical, no signs of hallucinations or delusions. Client Response/Progress/Benefit: []Pt engaged throughout session AEB pt participating in activity, contributing thoughts, and providing support and encouragement to peers. Client worked collaboratively with peers during activity in which group members had to identify positive strategies to overcome the various barriers/obstacles that hindered progress. Client identified personal barriers as: relationship with others, fear of change, and not giving myself enough credit. Client shared a strategy for overcoming barrier of low motivation as establishing and maintaining a healthy routine. Reports he finds routine to decrease anxiety as well. Client shared the barrier he is going to work on is giving himself more credit for accomplishment by communicating his accomplishments with others. Client seemed to benefit from increased repertoire of strategies to help overcome barriers to progress. Recommended continued IOP to maintain gains, prevent decompensation, and continue to improve sx management and healthy boundary setting. Narrative Note: []
--- NOTE | 2018-05-05 09:10 | BH.SGPN.GN ---
Behaviors/Verbalizations/Mental Status: [] Eye contact is good. Motor activity is appropriate. Appearance is casual. Speech is Appropriate. Mood is euthymic. Affect is full. Thoughts are linear and logical. No evidence of psychosis. Reviewed daily check in sheet and no reports of suicidal ideations or intent. Client Response/Progress/Benefit: [] Pt participated in group discussion. Emotion for today is happy. Shared with the group that he experienced a trigger today while at work. Reports that he experienced this trigger 2 months ago and it completely overwhelmed him and led depressive symptoms and panic. Was proud to report that he managed this trigger yesterday effectively. Reports that he did not break down and was able to utilize coping skills learned in groups. Admits that he did struggle at night stating that he felt lonely, bored, and depressed. Progress noted per pt report. Benefited from group discussion, feedback, and encouragement. Will continue in IOP to prevent decompensation and stabilize mood. Narrative Note: []
--- NOTE | 2018-05-05 10:25 | BH.SGPN.GN ---
Behaviors/Verbalizations/Mental Status: [Pt eye contact good, casually dressed, motor activity appropriate, speech normal rate and tone, mood euthymic, irritable, congruent affect, thoughts linear and intact, no evidence of delusions or hallucinations.] Client Response/Progress/Benefit: [Pt receptive of session and engaged throughout. Did well to participate in the activity and provide reflective input during session. Pt appeared to connect with various definitions of resilience provided by the group as well as ideas for how resilience can have positive impacts mental health and wellness. Pt agreed with peers that without resilience it is a lot harder to overcome difficulties or learn to ?bounce back?. Pt engaged in small group discussion about the various strategies that can help strengthen one's resilience. Indicated that making connections is an important component of resilience as it ?gives us positive reinforcement and perspective?. Pt seemed to benefit from increased awareness of various components that can contribute to increased resilience. Progress noted in his ability to provide insight as to how each resilience component can apply to own life. Continued IOP recommended to prevent decompensation, increase skill application, and continue to improve healthy boundary setting. ] Narrative Note: []
--- NOTE | 2018-05-05 12:33 | BH.MDN_ITS ---
Multi-Disciplinary Note - Note 60-min Individual Time Started:: 11:25 Date: 05/05/18 Purpose of session/treatment goals addressed:: The purpose of this session was to address current symptoms, stressors, and progress. Other goal was to identify activities and interests that support client's values and improve daily routine. Other topics included: maintenance and aftercare, love languages, and boundaries. Eye Contact:: Good Motor Activity:: Appropriate Appearance:: Casual Speech:: Appropriate Mood:: Dysthymic Affect:: Congruent Thoughts:: Linear, Logical, No evidence of hallucinations/delusions noted Staff Interventions:: Therapist used active listening and open-ended questions to explore client's current stressors, progress and gains, and symptoms. Therapist assisted client in challenging and reframing negative thinking. Therapist explored client's loneliness and helped client identify activities, interests, and values that can reduce loneliness. Therapist taught client about the 5 love languages and how one can use these to gain awareness of how one likes to be appreciated. Therapist used strengths perspective by showing client his reduced scores on the DSM-5 and discussed plan of care moving forward. Therapist gave client homework to identify his top 3 values and list activities that support those values. Client Response:: Client responded well to session, appearing less enthusiastic than usual. Client reported he has been feeling a little sad and lonely lately. Client shared he misses his dog and that he is also sad about things not working out with the friend he met last week. Client and therapist further processed client's emotions and challenged negative thinking patterns. Client recognized that he can feel sad from time to time and he reframed ruminations about the friend situation. Client reported he feels like his routine is becoming mundane and he is tired of doing the same thing over and over. Client able to identify interests and activities that could change things up and he recognized that he could do more things that align with his values. Client and therapist further processed client's loneliness using the 5 love languages. Client recognized that he needs words of affirmation and quality time to feel appreciated and less lonely. Client used this information to identify ways he can communicate with his supports and engage in activities to reduce feelings of loneliness. Client also acknowledged that he can improve with feeling comfortable and happy with himself, by himself. Client was open to the idea of going to a yoga class to be social and to work on being comfortable with himself. Client reported overall, he has been feeling better and, in a few weeks, he feels like he will be ready to discharge. Client reflected on his progress which includes: setting bound flaco, increasing socialization, challenging negative thoughts, and prevention of major setbacks when triggered. Client receptive to homework. Risks/Concerns:: Client denies any suicidal ideations, plan, or intent as of 05/05/18. Progress Toward Goals/Plan:: Client is demonstrating progress towards treatment goals as shown by his report of improved mood, increased emotional regulation, and increased socialization. Client reported he has been using mindfulness and challenging his negative thinking. Client shared he has been able to set boundaries and overcome challenges without major setbacks. Client has ongoing depressive and anxious symptoms, but they are of reduced intensity. Client?s DSM-5 scores at review have decreased by half which demonstrates significant progress. Although client reports he has been overall feeling better and ?like myself,? he is currently struggling with his routine being mundane and feeling lonely. Client open to homework provided by therapist to help with this and to engage in a different activity this weekend. Client continues to struggle with expectations and managing his emotions regarding interpersonal relationships. Client to continue IOP to further promote gains, increase value-driven activities, and improve self-esteem. Time Stopped:: 12:18
--- NOTE | 2018-05-05 14:51 | BH.MTP_ITS ---
Treatment Plan Review Date of Admission:: 04/05/18 Date of Treatment Plan Review:: 05/05/18 Admitting Diagnoses:: Major depression, recurrent, in partial remission F33.41; PADMINI F41.1; personality disorder unspecified Current Diagnoses:: Major depression, recurrent, in partial remission F33.41; PADMINI F41.1; personality disorder unspecified Patient's Response to Treatment:: Client has been responding well to treatment and is demonstrating significant progress. Client has consistent attendance and is active in both group and individual sessions. In group, client positively contributes to discussions, provides supportive feedback, and engages in activities. In individual sessions, client is receptive to new coping strategies, challenging cognitive distortions, and confronting patterns of behavior that have kept client feeling stuck. Client reports consistent application of mindfulness and thought challenging skills, increased socializing with friends, and engaging in activities he enjoys. Client's DSM-5 scores for depression and anxiety have both decreased by half and his overall DSM-5 score reduced from 41 at admission to 15 at review. Client continues to be open to increasing self-awareness and learning different strategies to better manage his emotions and relationships. Status of Current Problems and Symptoms: Client reports overall improvement in symptoms and has been able to get back to feeling like myself. However, client does continue to struggle with expectations in interpersonal relationships and feeling lonely. Client acknowledges some self-sabotaging behaviors such as recently meeting with a woman client met online, who was engaged, with the hopes of becoming friends. Client reported it did not work out well as her fiance laid the hammer down. Client shared he also feels like his daily routine is becoming mundane and repetitive. Client would like to find more things in life that bring him renita, reduce loneliness, and feel more comfortable with himself and others in relationships. Problem #1 Problem Name:: Pt. will reduce depressive symptoms, SI, and negative core beliefs Status of Goals:: Objective 1- accomplished- Client can identify negative thinking patterns that reinforce negative core beliefs and replace them. Client reported he has been writing down three positives a day and keeping a gratitude journal. Client wants to continue working on this goal as he recognizes he has schemas related to abandonment which at times reinforces depression. Objective 2- accomplished. Client?s DSM-5 scores for depression have reduced by half going from 4/8 at admission to 2/8 at review. Client also denies any suicidal thoughts. Additionally, client has been consistently applying healthy coping skills such as going to the gym, spending time with friends, and volunteering. Team Recommendations:: Client encouraged to continue working on this treatment goal to reinforce healthy coping skills and continue to combat negative core beliefs. Client and therapist currently working on managing loneliness and improving client's daily routine. Client encouraged to follow up with his outpatient providers for continuity of care. Problem #2 Problem Name:: Pt. will reduce overall frequency, intensity, and duration of anxiety Status of Goals:: Objective 1- accomplished. Client can identify his anxiety triggers and reports use of mindfulness strategies at work and at home to manage his anxiety. Client?s DSM-5 scores for anxiety have also reduced by half, going from 4/12 at admission to 212 at review. Objective 2-accomplished. Per client?s report he has been recognizing distortions as they happen, and he has been using self-talk to combat negative thoughts. Client stated he often tells himself ?I?m not a mind-reader? to prevent himself from feeding into cognitive distortions. Team Recommendations:: Client encouraged to continue working on this goal as he can continue to benefit from maintenance of healthy coping skills to promote gains. Client and therapist currently working on coping with work stress and ongoing cognitive restructuring. Client encouraged to follow up with his outpatient providers for continuity of care. Problem #3 Problem Name:: Pt. will increase self-awareness and interpersonal effectiveness skills Status of Goals:: Objective 1- partially accomplished. Client has learned different techniques to improve boundary setting and increase awareness of self- sabotaging behaviors. Client reports improved communication and conflict resolution with his father and coworkers. Client also recently set boundaries with his friend. Client to continue working on this goal as he has struggled with making and maintaining healthy female friendships. Team Recommendations:: Client encouraged to continuing working on this goal as he can continue to increase self-awareness and improve emotional regulation in interpersonal relationships. Client encouraged to follow up with outpatient providers for continuity of care.
--- NOTE | 2018-05-06 09:10 | BH.SGPN.GN ---
Behaviors/Verbalizations/Mental Status: [] Eye contact is good. Motor activity is appropriate. Appearance is casual. Speech is Appropriate. Mood is depressed. Affect is flat. Thoughts are linear and logical. No evidence of psychosis. Reviewed daily check in sheet and no reports of suicidal ideations or intent. Client Response/Progress/Benefit: [] Pt was an active participant in group discussion. Emotion for today is blah. Reports that he woke up this AM with a headache which has impacted his overall energy and mood. Insight into ability to change his mood and thoughts and not being a victim to his physical issues. Reports that he reached out to a friend last evening and went out to eat. States that this was helpful to decrease depression and feelings of loneliness. Looking forward to the weekend with plan to remain social and active. Pt provided appropriate feedback to peer who was struggling with anxiety. Progress noted per pt report. Will continue in IOP to prevent decompensation, stabilize mood, and increase coping skills. Narrative Note: []
--- NOTE | 2018-05-06 10:18 | BH.SGPN.GN ---
Behaviors/Verbalizations/Mental Status: []Client alert and oriented, neatly dressed and groomed. Eye contact good. Motor activity appropriate. Speech within normal limits. Affect congruent, mood euthymic. Thoughts linear, logical, no signs of hallucinations or delusions. Client Response/Progress/Benefit: []Client responded well to session, positive contributions to discussion. Client connected to the quote sharing ?the different forces cause growth.? Client contributed to the discussion of how life is made of up different positive and negative forces and how those forces impact one?s mental health. Client stated examples of positive forces include therapy, healthy coping skills, and self-care. Client identified examples of negative forces to be negative habits and negative thinking. Client participated in the activity and was able to manage his emotions and use assertive communication. At times the group struggled to keep the balance between positive and negative forces, but with adjustments and patience they were successful. Client appeared to benefit from practicing in the moment coping skills and gaining awareness. Progress noted as client has reported improved mood, but he can continue to increase use of healthy coping skills.
--- NOTE | 2018-05-06 13:46 | PCM.PN.BLA ---
Progress Note Chief Complaint: The patient is a 32-year old male who is an active participant in the intensive outpatient mental health treatment program at [facility]. He has a history of depression, anxiety, and personality vulnerabilities. History of Present Illness/Interim History: The patient states that generally he is doing well. He said that about 2 or 3 weeks ago he started to feel a lot better. His mood improved and his anxiety level decreased. He feels better in general. He thinks that the intensive outpatient groups have been very helpful. He is learning coping skills. 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 He was able to keep a clear head even though he still had feelings for her. He complains today of excessive sleepiness during the day. He states that on numerous occasions when he is driving he starts to drift off to sleep and this has caused him concerned about his safety. He told his PCP about this and was referred for a sleep study. However, he would like to be able to resolve the problem earlier if possible. I said we could try modafinil. Current Psychiatric Medications: Cymbalta 40 mg twice daily, Abilify 2 mg daily Review of Symptoms: Psychiatry: His mood has improved and his anxiety level is more manageable. He is not suicidal. There is no psychosis. He is cognitively intact. Constitutional: He is of average weight and his weight has been steady. His energy level is poor. He complains of excessive sleepiness. Mental Status Examination: The patient presents as a pleasant, personable male of average build who demonstrates good social skills. His thoughts are logical and coherent. His mood has improved. He is not suicidal. There is no psychosis. He is cognitively intact. Diagnoses: [place] I: Major depression, recurrent, in remission; generalized anxiety disorder; excessive daytime sleepiness [place] II: Personality disorder and specified [place] III: Healthy Plan: I am continuing treatment with Cymbalta and Abilify at the current doses. I am adding modafinil 100 mg every morning. The patient will continue participation in the intensive outpatient groups. I will see him again as needed.
--- NOTE | 2018-05-06 13:53 | PN_ITS ---
Progress Note Chief Complaint: The patient is a 32-year old male who is an active participant in the intensive outpatient mental health treatment program at [facility]. He has a history of depression, anxiety, and personality vulnerabilities. History of Present Illness/Interim History: The patient states that generally he is doing well. He said that about 2 or 3 weeks ago he started to feel a lot better. His mood improved and his anxiety level decreased. He feels better in general. He thinks that the intensive outpatient groups have been very helpful. He is learning coping skills. 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 He was able to keep a clear head even though he still had feelings for her. He complains today of excessive sleepiness during the day. He states that on numerous occasions when he is driving he starts to drift off to sleep and this has caused him concerned about his safety. He told his PCP about this and was referred for a sleep study. However, he would like to be able to resolve the problem earlier if possible. I said we could try modafinil. Current Psychiatric Medications: Cymbalta 40 mg twice daily, Abilify 2 mg daily Review of Symptoms: Psychiatry: His mood has improved and his anxiety level is more manageable. He is not suicidal. There is no psychosis. He is cognitively intact. Constitutional: He is of average weight and his weight has been steady. His energy level is poor. He complains of excessive sleepiness. Mental Status Examination: The patient presents as a pleasant, personable male of average build who demonstrates good social skills. His thoughts are logical and coherent. His mood has improved. He is not suicidal. There is no psychosis. He is cognitively intact. Diagnoses: [place] I: Major depression, recurrent, in remission; generalized anxiety disorder; excessive daytime sleepiness [place] II: Personality disorder and specified [place] III: Healthy Plan: I am continuing treatment with Cymbalta and Abilify at the current doses. I am adding modafinil 100 mg every morning. The patient will continue participation in the intensive outpatient groups. I will see him again as needed.
--- NOTE | 2018-05-10 09:05 | BH.SGPN.GN ---
Behaviors/Verbalizations/Mental Status: []Client alert and oriented, neatly dressed and groomed. Eye contact good. Motor activity appropriate. Speech within normal limits. Affect congruent, mood euthymic. Thoughts linear, logical, no signs of hallucinations or delusions. Reviewed client?s symptom tracker, no risk for suicidal ideation, plan, or intent as of 05/10/18. Client Response/Progress/Benefit: []Client responded well to session, active and providing words of encouragement. Client reports feeling ?hopeful? today. Client identified his current mental health ?wins? to be starting a narcolepsy medication to help with his daytime drowsiness and planning a vacation to [place]. Client shared he is going with his mother and aunt, but he reported that ?I told them I needed me time too.? Client reported belief he is communicating his needs with family and setting boundaries. Client?s current stressor is ?every time I come back from a trip I feel overwhelmed.? The group helped client challenge his perspective and he recognized that he is using some distorted thinking. Client shared he wants to try to focus on one thing at a time rather than look ahead at the unknown. Client appeared to benefit from reflecting on his positives and challenging negative thoughts. Progress noted as client more consistently reports improved mood, but he can continue to increase healthy boundaries to prevent setbacks.
--- NOTE | 2018-05-10 10:15 | BH.SGPN.GN ---
Behaviors/Verbalizations/Mental Status: [] Eye contact is good. Motor activity is appropriate. Appearance is casual. Speech is Appropriate. Mood is anxious. Affect is congruent. Thoughts are linear and logical. No evidence of psychosis Client Response/Progress/Benefit: [] Pt was an active participant in group discussion and activity. Along with group members pt worked on defining problem. Group identified that a problem is a difficulty matter requiring a solution and something that prevents them from reaching a goal. Attentive during psycho-education on components of a problem which included goals and barriers. Group identified common barriers to problem solving which included; distorted thoughts, toxic relationships, lack of resources, and other limitations. Attentive during psycho-education on strategies for problem-solving through the ABCDE method; which is Asking what the problem is; Brainstorming solutions, Choosing a solution, Doing it, and Evaluate. Group worked through some examples of problems using the ABCDE method. Benefited from identifying barriers to problem solving and learning new strategies to problem solve effectively. Will continue in IOP to maintain gains, stabilize mood, and increase coping skills. Narrative Note: []
--- NOTE | 2018-05-10 11:15 | BH.SGPN.GN ---
Behaviors/Verbalizations/Mental Status: [Eye contact is good. Motor activity is appropriate. Appearance is casual. Speech is Appropriate. Mood is positive, euthymic. Affect is congruent with mood. Thoughts are linear and logical. No evidence of psychosis. ] Client Response/Progress/Benefit: [Pt was an active participant in group activity and discussion, provided insight and worked with group to process activity completed in previous session. Pt completed problem-solving worksheet in which pt identified current problem impacting mental health as What do I want to do about my job and developed a [id number]-[id number] plan to address this problem which he reviewed within the small group. Pt identified barriers to overcoming problem which include; family, financial pressures, fear of failing, and lack of self-confidence. Identified steps to reaching goal as: keep a list of personal strengths, brainstorm potential job possibilities, ask friends for advice, and reflect upon personal goals/values related to happiness. Benefited from group as she was able to create a personalized plan which identified barriers and steps to work on a mental health problem. Will continue in IOP to maintain gains and prevent decompensation while continuing to improve mental health sx management and increase confidence levels.] Narrative Note: []
--- NOTE | 2018-05-11 07:53 | BH.MDN_ITS ---
Multi-Disciplinary Note - Note 45-min Individual Time Started:: 12:10 Date: 05/10/18 Purpose of session/treatment goals addressed:: The purpose of this session was to review homework, discuss self-care balance, and continue to work on cognitive restructuring. Other topics included: discharge, personal values, and medication changes. Eye Contact:: Good Motor Activity:: Appropriate Appearance:: Neat Speech:: Appropriate Mood:: Euthymic Affect:: Congruent Thoughts:: Linear, Logical, No evidence of hallucinations/delusions noted Staff Interventions:: Therapist used active listening and open-ended questions to explore client?s experience with medication changes and homework. Therapist discussed the benefits of ongoing self-awareness and self-care balance to promote gains client has made in IOP. Therapist helped client explore his personal values and identify activities and opportunities that will reflect those values. Therapist gently challenged client on use of cognitive distortions and boundaries with family. Therapist used strengths perspective to reflect on client progress and discussed upcoming discharge. Client Response:: Client responded well to session, open to meeting with therapist. Client stated his drowsiness has reduced with the help of recent medication change. Client reported his mood continues to be consistently improved. Client shared after I got over my fear of getting better I actually got a lot better. Client shared he completed the homework from last session and made small changes to his daily routine to reduce mundaneness. Client recognized that to promote progress moving forward, he wants to try to engage in more opportunities and activities that reflect his personal values. 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 Client stated he is starting to feel like I can make big decisions again. Client acknowledges that he will need to continue to find balance in self-care and maintain boundaries. Client reported he is going to [place] with his mother and aunt to drive them around. However, client stated he set a boundary and told his mother that client will need me-time on the beach. Client receptive to continuing to practice healthy coping skills and maintaining self-care routine. Risks/Concerns:: Client denies any suicidal ideations, plan, or intent as of 05/10/18. Progress Toward Goals/Plan:: Client is demonstrating progress towards treatment goals as shown by his report of improved mood, increased emotional regulation, and thought challenging. Client continues to feel stable in his mood and able to overcome stressors. Client stated his drowsiness during the day has reduced with the help of recent medication change. Client also shared he has ?moved past? the loneliness he felt last week, and he has made changes to switch up his daily routine. Client is showing improvement with boundary setting, but he continues to struggle with saying no to people, which could create issues in the future. Client to continue IOP to further promote gains made in IOP and reinforce healthy coping skills. Time Stopped:: 12:55
--- NOTE | 2018-05-11 09:10 | BH.SGPN.GN ---
Behaviors/Verbalizations/Mental Status: [] Eye contact is good. Motor activity is appropriate. Appearance is casual. Speech is Appropriate. Mood is euthymic. Affect is full. Thoughts are linear and logical. No evidence of psychosis. Reviewed daily check in sheet and no reports of suicidal ideations or intent. Client Response/Progress/Benefit: [] Pt participated in group discussions. Emotion for today is hopeful. Shared that the groups that he attended in IOP were helpful and he utilized some skills discussed yesterday after group. Shared no current concerns with mood and reports I'm happy to be here. Benefited from group feedback and support. Progress noted. Will continue in IOP to prevent decompensation, stabilize mood, and improve daily functioning. Narrative Note: []
--- NOTE | 2018-05-11 10:16 | BH.SGPN.GN ---
Behaviors/Verbalizations/Mental Status: [Client alert and oriented, casually dressed and appropriately groomed. Eye contact good. Motor activity appropriate - at times restless AEB leg shaking and fidgeting in seat. Speech within normal limits. Affect congruent, mood euthymic, thoughtful. Thoughts linear, logical, no signs of hallucinations or delusions. ] Client Response/Progress/Benefit: [Pt responded well to session, active participant throughout activity and discussion. Provided insight regarding topic of social supports. Pt reported connecting with the quote and shared that supports ?can help you get back up when you fall?. Pt shared barriers to seeking support can include supports not understanding and past negative experiences. Identified benefits of social support as helping us gain awareness and challenge our perspective. Pt was engaged during the group activity and responded well to being challenged to trust his group and take direction rather than being in the leader role. Appeared to benefit from gaining awareness of barriers that keep from seeking social support as well as practicing in the moment coping skills during activity. Progress noted in ability to challenge himself to step outside his comfort zone and trust others to provide support. Continued tx to prevent decompensation, promote healthy coping, and continue to make progress towards tx goals.] Narrative Note: []
--- NOTE | 2018-05-11 11:20 | BH.SGPN.GN ---
Behaviors/Verbalizations/Mental Status: []Pt alert and oriented, eye contact good, casually and neatly dressed, motor activity appropriate, speech normal rate and tone, mood euthymic, congruent affect, thoughts linear and intact, no evidence of delusions or hallucinations. Client Response/Progress/Benefit: []Client receptive of session and provided input to discussion as well as examples throughout. Client worked with the group to make connections between barriers faced in the challenge activity and strategies for managing these barriers with utilizing social supports in daily life. Client reflected that a personal barrier in using his current supports is not knowing where to meet people. Client contributed to discussion about the different types of support and benefits different types of support can provide. Client worked with the group to identify strategies for improving development of new supports and better utilization of current supports. He identified wanting to increase self-help group support because being around people with similar issues can help him cope and maintain progress. Client identified he will look into what groups are offered at the [facility] and choose a group to attend. Client seemed to benefit from supportive environment and creating actionable steps to promote follow-through. Client to continue IOP level of care to prevent decompensation, increase use of healthy supports, improve thought challenge and anxiety management skills. Narrative Note: []
--- NOTE | 2018-05-18 09:00 | BH.SGPN.GN ---
Behaviors/Verbalizations/Mental Status: [] Eye contact is good. Motor activity is appropriate. Appearance is neat. Speech is Appropriate. Mood is euthymic. Affect is full. Thoughts are linear and logical. No evidence of psychosis. Reviewed daily check in sheet and no reports of suicidal ideations or intent. Client Response/Progress/Benefit: [] Pt was an active participant in group. Emotion for today is relaxed. Shared that he has set up a couple trips in the future. Reports that he beleives that he is managing his emotions well. Denies any overwhelming depression, anxiety, or anger. Hopeful and future-oriented. Continues to have small stressors however reports utilizing skills to ensure that he addressed these stressors rather that letting them get bigger. Stated I started my day feeling depressed however I'm not going to let that control me. Benefited from group support and encouragement. Will continue in IOP to maintain gains. Plan is to discharge this week. Progress noted. Narrative Note: []
--- NOTE | 2018-05-18 11:15 | BH.SGPN.GN ---
Behaviors/Verbalizations/Mental Status: []Client alert and oriented, neatly dressed and groomed. Eye contact good. Motor activity appropriate. Speech within normal limits. Affect congruent, mood euthymic. Thoughts linear, logical, no signs of hallucinations or delusions. Client Response/Progress/Benefit: []Client responded well to session, provided examples and engaged in discussion. Client contributed to discussion of how one can learn to better manage anxiety. Client stated managing anxiety requires a mixture of using calming coping skills and reframing negative thoughts. Client appeared to connect with mindfulness and the different ways one can practice mindfulness. Client shared he tries to use mindfulness daily as it ?helps calm me down.? Client engaged in the mindfulness exercises led by meter tester. Client created a mindfulness ?menu? and reported he plans to try body scanning as a technique to manage anxiety. Client appeared to benefit from practicing in the moment mindfulness techniques. Progress noted as client reports more consistent mood stability and reduce depressive symptoms. Client to discharge on Wednesday, but he can benefit from one more IOP day to reinforce healthy coping skills.
--- NOTE | 2018-05-18 15:18 | BH.MDN_ITS ---
Multi-Disciplinary Note - Note 45-min Individual Time Started:: 10:37 Date: 05/18/18 Purpose of session/treatment goals addressed:: The purpose of this session was to review client's progress, provide closure to treatment, and review strategies that will promote mood stability and gains made in IOP. Another goal was to discuss aftercare and discharge recommendations. Eye Contact:: Good Motor Activity:: Appropriate Appearance:: Neat Speech:: Appropriate Mood:: Euthymic Affect:: Congruent Thoughts:: Linear, No evidence of hallucinations/delusions noted Staff Interventions:: Therapist used open-ended questions to explore client's thoughts on personal progress. Therapist reviewed supports, warning signs, and coping skills with client to promote gains and prevent setbacks. Therapist discussed aftercare plan with client and used strengths-perspective to empower client on the goals client accomplished. Therapist gave client a quote collage for closure. Client Response:: Client responded well to session, open to meeting with therapist. Client reflected on the progress he has made in IOP. Client self- reported progress in his improved mood and boundaries, reduced negative thinking, and ability to cope with stressors more effectively. Client shared I feel like I can process things and slow down. Client reported he has been able to maintain a stable mood for the past several weeks and he feels more confident in his self-care balance. Client reviewed his warning signs for anxiety and depression as well as triggers that could keep client stuck in unhealthy maintenance cycles. Client identified coping skills and supports he can use moving forward that will promote mood stability and prevent setbacks. Some of client's coping skills included going to the gym, positive self-talk, taking small self-care breaks, setting daily goals, and challenging negative thinking. Client reports belief he is doing well, and that he is finally thinking with the mindset of things get better rather than thinking when's the next bad thing going to happen. Client to follow up with his outpatient provider at [facility] and to continue engaging in social activities. Risks/Concerns:: Client denies any suicidal ideations, plan, and intent as of 05/18/18. Progress Toward Goals/Plan:: Client has demonstrated significant progress towards treatment goals as shown by his report of improved mood, decreased intensity of symptoms, increased emotional regulation, and thought challenging. Client has been able to show consistent mood stability and been able to overcome stressors. Client self-reports improved outlook, boundaries, and emotional healing. Client to discharge from IOP on Wednesday05/20/18. Client can benefit from one more IOP day to reinforce healthy coping skills and discuss medication concerns with IOP psychiatrist. Time Stopped:: 11:15
--- NOTE | 2018-05-18 15:19 | BH.IGGP_ITS ---
Aftercare Plan - Demographics Treatment End Date:: 05/20/18 Psychiatrist:: Raymon Travis Psychiatrist Office #:: [id number] [facility] Therapist:: Abeba Escobar Therapist Phone #:: [phone] - Medications Home Medications: Home Medications Duloxetine Hcl [Cymbalta] 40 mg PO BID 04/08/18 Aripiprazole [Abilify] 2 mg PO DAILY 04/22/18 - Plan Details Progress/Aftercare Plan Details:: Fernandez, you have shown so much progress while in IOP! You not only learned healthy coping skills and increased self-awareness, but you applied the skills, which was why you progressed so much. Your mood has been more consistently stable, and you have been actively challenging negative thought patterns. You have reached out to supports, but also set difficult boundaries with friends. You have been active in various areas of self-care and been able to control your emotions better. You recognize personal strengths and have awareness of pitfalls that may get you stuck. You have been able to look more optimistically to the future rather than thinking ?when?s the next bad thing going to happen.? You have learned how to heal emotionally, increase confidence, and overcome barriers. You have been more mindful and deliberate with your actions which is not easy to do. You have built upon positive relationships with friends and not let stressors result in major setbacks. Great work! Strategies for Success:: 1. AWARENESS! Keep being aware of those warning signs, distorted thoughts, and unhealthy maintenance cycles so you can prevent pitfalls! 2. Stay active in all areas of self-care (physical, spiritual, social, emotional, etc.) 3. Challenge distorted thoughts and combat ruminations- remember no one is a mind-reader! 4. Communicate! With supports, family, and work. Don't forget to communicate your needs and boundaries. 5. Continue to practice mindfulness and switch up your routine every now and then. 6. Small SMART goals and focus on one thing at a time. 7. Continue to reach out to supports and volunteer. Start up a meetup group! 8. Don't forget to be kind to yourself and remember to take care of your mental health needs, even when others ask for your help. 9. Positive self-talk! Ask yourself is it worth stewing over? 10. Opposite Action! Break out of those negative maintenance cycles when you catch early warning signs. GREAT WORK! - Appointments Appointments/Referrals to Other Services:: 1. Follow up with Brittney Robles at [facility] 2. Follow up with Lindsay Fournier at [place] [facility] for weekly counseling. 3. Follow up with sleep study. 4. Continue to engage in healthy social/volunteer activities.
--- NOTE | 2018-05-20 09:02 | BH.SGPN.GN ---
Behaviors/Verbalizations/Mental Status: [Eye contact is good. Motor activity is WNL. Appearance is casual. Speech is appropriate rate and tone. Mood is euthymic, positive, anxious. Affect is congruent, bright. Thoughts intact, linear and logical. No evidence of psychosis. Reviewed daily check in sheet with no reports of suicidal ideations or intent] Client Response/Progress/Benefit: [Client attentive and engaged in group discussion, providing input throughout. Emotion for today is bittersweet as he reflected on today being his last day. Shared with the group mental health positives of successfully completing the program and seeing improvements in his ability to manage mental health. Additional positive as ?I learned how to let things go about work?. Indicated that he is glad to have taken notes so that he can refer back to what he has learned in IOP. Described current stressor as transitioning back to the workplace full-time. Client displaying significant progress in ability to manage mental health symptoms and use healthy coping with regards to anxiety. Benefitted from reviewing progress and effective means of coping. Recommended stepdown to outpatient tx given progress in IOP.] Narrative Note: []
--- NOTE | 2018-05-20 10:20 | BH.SGPN.GN ---
Behaviors/Verbalizations/Mental Status: [] Eye contact is good. Motor activity is appropriate. Appearance is casual. Speech is Appropriate. Mood is anxious. Affect is congruent. Thoughts are linear and logical. No evidence of psychosis. Client Response/Progress/Benefit: [] Pt was an active participant in group discussion and activity. Worked with the group to identify negative coping skills which increase MH symptoms such as; addiction, isolation, avoidance, sleeping to escape, anger outbursts, and impulsive behaviors. Group also identified barriers or obstacles that keep us in unhealthy coping skills such as; lack of awareness of healthy coping, immediate gratification, unhealthy feels comfortable, challenging to change what we are used too, being in negative relationships, and distorted thinking. Participated in experiential activity and processed the activity with the group. Through processing of activity group identified some strategies which helped them overcome barriers during the activity. Able to identify how strategies used such as communication, focus, and mindfulness could also be beneficial positive coping skills. Started to categorize internal vs external coping skills. Benefited from group through identification of unhealthy coping skills, barriers to overcoming unhealthy coping skills, psycho-education on external vs internal coping skills, and coping strategies. Will continue in [facility] to maintain gains. Expected discharge next week. Narrative Note: []
--- NOTE | 2018-05-20 11:20 | BH.SGPN.GN ---
Behaviors/Verbalizations/Mental Status: []Pt eye contact good, casually dressed, motor activity appropriate, speech normal rate and tone, mood euthymic, congruent affect, thoughts linear and intact, no evidence of delusions or hallucinations. Client Response/Progress/Benefit: []Pt engaged during session as evidenced by providing input throughout discussion and attentively listened to others. Pt identified several healthy coping skills throughout group brainstorm. Pt reported distraction coping skills can be helpful to get your mind of the issue, but recognizes distraction can become an unhealthy coping skill. Pt identified he is willing to practice the following coping skills to increase his healthy skills toolkit: puzzles, boxing, body scan, positive affirmations and reframing negative thoughts. Pt seemed to benefit from increasing repertoire of healthy coping skills. Pt progressing with increased self-awareness of unhealthy thoughts and increased generalization of healthy coping. Pt to continue IOP level of care to maintain gains, continue utilization of healthy coping and prevent decompensation. Narrative Note: []
--- NOTE | 2018-05-20 12:17 | BH.DS ---
Discharge Summary - Demographics Date of Admission:: 04/05/18 Discharge Date: 05/20/18 Presenting Problems at Admission:: Client is a 32-year-old male with a history of depression and anxiety who was referred to [facility] by his PCP due to worsening depression for the past several months. Client described his depression at intake as really bad and having nonstop symptoms. Client's symptoms had been worsening over the past year due to numerous stressors including loss of his grandma and two pets, break up with girlfriend, and family issues. At admission, client endorsed depressed mood, decreased motivation, lack of renita in life, passive thoughts of , and negative core beliefs. Client also endorsed ruminative anxiety and history of panic attacks. Client reported his family dynamic and work were significantly impacting client's mental health and mood. At time of admission, client shared it was hard for him to move on and that he has not felt happy in a long time. Client's symptoms impacted his social, familial, and occupational functioning as well as his quality of life. Discharge Diagnoses:: Major depression, recurrent, in partial remission F33.41; PDAMINI F41.1; personality disorder unspecified Reason for Discharge:: Client has made significant progress towards his treatment goals, reports reduced depression and anxiety, and no longer reports suicidal ideation. Client no longer meets criteria for [facility] level of care. - Treatment Progress During Treatment & Response: Client responded well to treatment and demonstrated significant progress while participating in [facility]. Client showed consistent attendance and was active in both group and individual sessions. In group, client positively contributed to discussions, provided supportive feedback, and engaged in activities. Client also took notes and made efforts to challenge his perspective. In individual sessions, client was receptive to new coping strategies, challenged cognitive distortions, and confronted patterns of behavior that have kept client feeling stuck. Client was consistent in completing homework and applying mindfulness and thought challenging skills. Client increased socializing with friends and engaged in activities he enjoys. At time of discharge client had created a meetup group to further increase his support network. Client was able to recognize personal strengths and increase awareness of vulnerability factors. Client also reported improved outlook and optimism. At admission client shared he often felt like ?when?s the next bad thing going to happen,? but at time of discharge he reported feeling hopeful about his future. Client denied suicidal ideation for the past three weeks which is progress. Client's DSM-5 scores for depression and anxiety have both decreased. Client?s score for anxiety went from 4/12 at admission, to 0/12 at discharge. Additionally, client?s score for depression went from 2/8 at admission to 2/8 at discharge. Client?s overall DSM-5 scores reduced from 41 at admission to 14 at discharge. Issues Still to be Addressed:: Client showed significant progress while in IOP, but he can continue to benefit from ongoing counseling to reinforce healthy coping skills he has acquired. Client can continue to reinforce boundary setting, thought challenging, and mindfulness to manage his symptoms. Client can also benefit from ongoing medication management to further support his healthy coping skills and maintain stability. Client acknowledges that he can also benefit from ongoing work on challenging and replacing negative core beliefs. Lastly, client would like to continue to increase his social supports and healthy relationships. Discharge Recommendations/Instructions:: Client was recommended to follow up with his outpatient mental health providers for continuity of care and to continue to promote gains. Client recently saw Brittney Robles at [facility] for medication management, and he will continue to see her. Client encouraged to follow up with Lindsay Fournier at [facility] for weekly counseling. Client's next appointment is 04/25/18. Client was experiencing some issues with sleep and daytime drowsiness while in IOP and was encouraged to follow up with getting a sleep study. Discharge Handout: Complete Discharge Handout with client on aftercare options and continuity of care.
--- NOTE | 2018-05-20 15:18 | BH.AFTERPLAN ---
Aftercare Plan - Demographics Treatment End Date:: 05/20/18 Psychiatrist:: Raymon Travis Psychiatrist Office #:: [id number] [facility] Therapist:: Abeba Escobar Therapist Phone #:: [phone] - Medications Home Medications: Home Medications Duloxetine Hcl [Cymbalta] 40 mg PO BID 04/08/18 Aripiprazole [Abilify] 2 mg PO DAILY 04/22/18 - Plan Details Progress/Aftercare Plan Details:: Fernandez, you have shown so much progress while in IOP! You not only learned healthy coping skills and increased self-awareness, but you applied the skills, which was why you progressed so much. Your mood has been more consistently stable, and you have been actively challenging negative thought patterns. You have reached out to supports, but also set difficult boundaries with friends. You have been active in various areas of self-care and been able to control your emotions better. You recognize personal strengths and have awareness of pitfalls that may get you stuck. You have been able to look more optimistically to the future rather than thinking ?when?s the next bad thing going to happen.? You have learned how to heal emotionally, increase confidence, and overcome barriers. You have been more mindful and deliberate with your actions which is not easy to do. You have built upon positive relationships with friends and not let stressors result in major setbacks. Great work! Strategies for Success:: 1. AWARENESS! Keep being aware of those warning signs, distorted thoughts, and unhealthy maintenance cycles so you can prevent pitfalls! 2. Stay active in all areas of self-care (physical, spiritual, social, emotional, etc.) 3. Challenge distorted thoughts and combat ruminations- remember no one is a mind-reader! 4. Communicate! With supports, family, and work. Don't forget to communicate your needs and boundaries. 5. Continue to practice mindfulness and switch up your routine every now and then. 6. Small SMART goals and focus on one thing at a time. 7. Continue to reach out to supports and volunteer. Start up a meetup group! 8. Don't forget to be kind to yourself and remember to take care of your mental health needs, even when others ask for your help. 9. Positive self-talk! Ask yourself is it worth stewing over? 10. Opposite Action! Break out of those negative maintenance cycles when you catch early warning signs. GREAT WORK! - Appointments Appointments/Referrals to Other Services:: 1. Follow up with Brittney Robles at [facility] 2. Follow up with Lindsay Fournier at [place] [facility] for weekly counseling. 3. Follow up with sleep study. 4. Continue to engage in healthy social/volunteer activities.
--- NOTE | 2018-05-20 16:05 | PCM.PN.BLA ---
Progress Note Chief Complaint: The patient is a 32-year old male who is an active participant in the intensive outpatient mental health treatment program at [facility]. He has a history of depression, anxiety, personality vulnerabilities and excessive daytime somnolence. History of Present Illness/Interim History: Patient states that he is doing well. This is his last day in treatment. He is sad because he will be missing everybody in the program. He also has some normal ups and downs of life. He has gotten a lot out of the program. His mood has been mostly good. His anxiety level is stable. He did find my last prescription of modafinil to be helpful but the effect seems to be wearing off. He is again getting drowsy during the day. Current Psychiatric Medications: Cymbalta 40 mg twice daily, Abilify 2 mg daily; Modafinil 100 mg every morning Review of Symptoms: Psychiatry: His mood has improved and his anxiety level is manageable. He is not suicidal. There is no psychosis. He is cognitively intact. Constitutional: He is of average weight and his weight has been steady. His energy level has improved. He still has some excess sleepiness during the day as per HPI. Mental Status Examination: The patient presents as a pleasant, personable male of average build who demonstrates good social skills. His thoughts are logical and coherent. His mood has improved in general. He is not suicidal. There is no psychosis. He is cognitively intact. Diagnoses: [] [place] I: Major depression, recurrent, in remission; generalized anxiety disorder; excessive daytime sleepiness [place] II: Personality disorder unspecified [place] III: Healthy Plan: I am continuing treatment with Cymbalta and Abilify at the current doses. I am increasing modafinil to 200 mg every morning. The patient is completing the intensive outpatient program. I will see him again as needed.
--- NOTE | 2018-05-23 07:17 | BH.DS_ITS ---
Discharge Summary - Demographics Date of Admission:: 04/05/18 Discharge Date: 05/20/18 Presenting Problems at Admission:: Client is a 32-year-old male with a history of depression and anxiety who was referred to [facility] by his PCP due to worsening depression for the past several months. Client described his depression at intake as really bad and having nonstop symptoms. Client's symptoms had been worsening over the past year due to numerous stressors including loss of his grandma and two pets, break up with girlfriend, and family issues. At admission, client endorsed depressed mood, decreased motivation, lack of renita in life, passive thoughts of , and negative core beliefs. Client also endorsed ruminative anxiety and history of panic attacks. Client reported his family dynamic and work were significantly impacting client's mental health and mood. At time of admission, client shared it was hard for him to move on and that he has not felt happy in a long time. Client's symptoms impacted his social, familial, and occupational functioning as well as his quality of life. Discharge Diagnoses:: Major depression, recurrent, in partial remission F33.41; PADMINI F41.1; personality disorder unspecified Reason for Discharge:: Client has made significant progress towards his treatment goals, reports reduced depression and anxiety, and no longer reports suicidal ideation. Client no longer meets criteria for [facility] level of care. - Treatment Progress During Treatment & Response: Client responded well to treatment and demonstrated significant progress while participating in [facility]. Client showed consistent attendance and was active in both group and individual sessions. In group, client positively contributed to discussions, provided supportive feedback, and engaged in activities. Client also took notes and made efforts to challenge his perspective. In individual sessions, client was receptive to new coping strategies, challenged cognitive distortions, and confronted patterns of behavior that have kept client feeling stuck. Client was consistent in completing homework and applying mindfulness and thought challenging skills. Client increased socializing with friends and engaged in activities he enjoys. At time of discharge client had created a meetup group to further increase his support network. Client was able to recognize personal strengths and increase awareness of vulnerability factors. Client also reported improved outlook and optimism. At admission client shared he often felt like ?when?s the next bad thing going to happen,? but at time of discharge he reported feeling hopeful about his future. Client denied suicidal ideation for the past three weeks which is progress. Client's DSM-5 scores for depression and anxiety have both decreased. Client?s score for anxiety went from 4/12 at admission, to 0/12 at discharge. Additionally, client?s score for depression went from 2/8 at admission to 2/8 at discharge. Client?s overall DSM-5 scores reduced from 41 at admission to 14 at discharge. Issues Still to be Addressed:: Client showed significant progress while in IOP, but he can continue to benefit from ongoing counseling to reinforce healthy coping skills he has acquired. Client can continue to reinforce boundary setting, thought challenging, and mindfulness to manage his symptoms. Client can also benefit from ongoing medication management to further support his healthy coping skills and maintain stability. Client acknowledges that he can also benefit from ongoing work on challenging and replacing negative core beliefs. Lastly, client would like to continue to increase his social supports and healthy relationships. Discharge Recommendations/Instructions:: Client was recommended to follow up with his outpatient mental health providers for continuity of care and to continue to promote gains. Client recently saw Brittney Robles at [facility] for medication management, and he will continue to see her. Client encouraged to follow up with Lindsay Fournier at [facility] for weekly counseling. Client's next appointment is 04/25/18. Client was experiencing some issues with sleep and daytime drowsiness while in IOP and was encouraged to follow up with getting a sleep study. Discharge Handout: Complete Discharge Handout with client on aftercare options and continuity of care.
== END 2018-05-20 14:00 ==
LOC: BHIOP 09:00
PROVIDERS: Family Provider Family Medicine; PCP Family Medicine; Referring Provider Psychiatry & Neurology Psychiatry; Visit Provider Psychiatry & Neurology Psychiatry
DX: F33.40 Major depressive disorder, recurrent, in remission, unspecified (principal); F41.1 Generalized anxiety disorder; G47.19 Other hypersomnia; F60.9 Personality disorder, unspecified; Z79.899 Other long term (current) drug therapy
CPT/HCPCS: H0035; 90834; 90837; 90853

== ENCOUNTER → 2018-07-26 | Outpatient (CLI) | payer BC, SELFPAY | END | disposition home or self-care (01) | LOC: SL 22:44 | PROVIDERS: Family Provider Family Medicine; PCP Family Medicine; Visit Provider Family Medicine | DX: G47.10 Hypersomnia, unspecified (principal) | CPT/HCPCS: 95810 ==

== ENCOUNTER → 2018-07-27 | Outpatient (CLI) | payer BC, SELFPAY | END | disposition home or self-care (01) | LOC: SL 09:59 | PROVIDERS: Family Provider Family Medicine; PCP Family Medicine; Visit Provider Family Medicine | DX: G47.33 Obstructive sleep apnea (adult) (pediatric) (principal) ==

== ENCOUNTER → 2018-08-24 | Outpatient (CLI) | payer BC, SELFPAY | END | disposition home or self-care (01) | LOC: SL 20:06 | PROVIDERS: Family Provider Family Medicine; PCP Family Medicine; Referring Provider Family Medicine; Visit Provider Family Medicine | DX: G47.33 Obstructive sleep apnea (adult) (pediatric) (principal) | CPT/HCPCS: 95811 ==

== ENCOUNTER → 2018-09-09 | Outpatient (CLI) | payer BC, SELFPAY | END | disposition home or self-care (01) | LOC: SL 13:18 | PROVIDERS: Family Provider Family Medicine; PCP Family Medicine; Visit Provider Nurse Practitioner Family | DX: Z46.89 Encounter for fitting and adjustment of other specified devices (principal) ==

== ENCOUNTER → 2019-09-18 | Outpatient (CLI) | payer BC, SELFPAY | END | disposition home or self-care (01) | LOC: LABSPEC 11:03 | PROVIDERS: PCP Family Medicine; Referring Provider Family Medicine; Visit Provider Family Medicine | DX: Z20.828 Contact with and (suspected) exposure to other viral communicable diseases (principal) | CPT/HCPCS: 87635; 94799; U0003 ==

== ENCOUNTER 2020-05-29 11:39 | Outpatient (RCR) | payer BC, SELFPAY | END 2020-07-30 23:59 | LOC: IMMUN 11:39 | PROVIDERS: PCP Family Medicine; Visit Provider Family Medicine | DX: Z23 Encounter for immunization (principal) | CPT/HCPCS: 0001A; 0002A; 91300 ==

== ENCOUNTER → 2023-06-02 | Outpatient (CLI) | payer BC, SELFPAY ==
[2023-06-02 18:42] LABS: Amphetamine Urine VISTA NEGATIVE (<1000 ng/mL); Barbiturate Urine VISTA NEGATIVE (< 200 ng/mL); Benzodiazepine Urine VISTA NEGATIVE (< 200 ng/mL); Cocaine Urine VISTA NEGATIVE (< 300 ng/mL); Ecstacy Urine VISTA NEGATIVE (< 500 ng/mL); Methadone Urine VISTA NEGATIVE (< 300 ng/mL); PCP Urine VISTA NEGATIVE (< 25 ng/mL); THC Urine VISTA NEGATIVE (< 50 ng/mL); Vista UDS pH Range 6
== END | disposition home or self-care (01) ==
PROVIDERS: PCP Family Medicine; Referring Provider Nurse Practitioner Psychiatric/Mental Health; Visit Provider Nurse Practitioner Psychiatric/Mental Health
DX: F90.0 Attention-deficit hyperactivity disorder, predominantly inattentive type (principal)
CPT/HCPCS: 80307

== ENCOUNTER → 2024-02-25 | Outpatient (CLI) | payer BC, SELFPAY ==
--- NOTE | 2024-02-25 15:10 | RAD_ITS ---
EXAM: XR CERVICAL SPINE, 4 OR 5 VIEWS CLINICAL INDICATION: PAIN BASE OF SKULL TECHNIQUE: Frontal, lateral and bilateral oblique views of the cervical spine. COMPARISON: No relevant prior studies available. FINDINGS: VERTEBRAE: Unremarkable. Preserved vertebral body height. No acute fracture. No spondylolisthesis. Preservation of the normal cervical lordosis. No significant facet arthropathy. No significant osseous encroachment of the neural foramen on the oblique projections. DISC SPACES: Unremarkable. Disc spaces are maintained. SOFT TISSUES: Unremarkable. No prevertebral soft tissue widening. LUNG APICES: Clear. RAD/Cerv Spine 4 or 5 Views IMPRESSION: Unremarkable plain film evaluation of the cervical spine. Electronically Signed: Tucker Yang MD at 0:56 EST ,
== END | disposition home or self-care (01) ==
LOC: RAD 15:06
PROVIDERS: PCP Family Medicine; Visit Provider Family Medicine
DX: M54.2 Cervicalgia (principal)
CPT/HCPCS: 72050

== ENCOUNTER → 2024-05-30 | Outpatient (CLI) | payer BC, SELFPAY ==
--- NOTE | 2024-05-30 15:54 | MRI_ITS ---
PROCEDURE: SPINE CERVICAL (ROUTINE) 05/30/2024 REASON FOR EXAM: OCCIPITAL PAIN AND PARATHESSIA TECHNIQUE: Noncontrast cervical spine MRI. Coronal and Sagittal reconstruction series were provided. COMPARISON: None. FINDINGS: Vertebrae: Cervical vertebral body heights are preserved. Bone marrow signal is unremarkable. Alignment: Normal. No spondylolisthesis. Spinal Cord: Cervical spinal cord is of normal size and signal intensities. Structures at the foramen magnum are unremarkable. C2-3: Canal neural foramina are patent. C3-4: Canal neural foramina are patent. C4-5: Canal neural foramina are patent. C5-6: Canal neural foramina are patent. C6-7: Canal neural foramina are patent. C7-T1: Canal neural foramina are patent. MRI/Spine Cervical (Routine) IMPRESSION: Unremarkable MRI of the cervical spine. Reading Location: [place]
== END | disposition home or self-care (01) ==
LOC: MRI 15:38
PROVIDERS: PCP Family Medicine; Referring Provider Family Medicine; Visit Provider Family Medicine
DX: M79.2 Neuralgia and neuritis, unspecified (principal); R20.0 Anesthesia of skin
CPT/HCPCS: 72141